=== PATIENT | male | born 1940 | race Caucasian/White ===

== ENCOUNTER 2019-11-04 12:51 | Emergency (ER) | payer MEDICARE, OTHER, SELFPAY ==
[2019-07-10 14:50] VITALS: BMI 28.6
[2019-11-04] VITALS (7 sets, daily range): BP systolic 153–207; BP diastolic 79–96; PULSE 61–75; RESP 18–24; TEMP 36.6; O2SAT 94–100; BMI 28.5
--- NOTE | 2019-11-04 12:51 | CT_ITS ---
STUDY: CT BRAIN WITHOUT CONTRAST REASON FOR EXAM: Male, 79 years old. Slurred speech, diaphoretic, hx dementia, hypertension, diabetes. RADIATION DOSAGE (If Supplied By Facility): CTDIvol = ( 44.99 ) mGy, DLP = ( 745.49 ) mGycm TECHNIQUE: Transaxial CT imaging of the brain was performed without administration of intravenous contrast material. Individualized dose optimization techniques were used for this CT. COMPARISON: No relevant priors. FINDINGS: Normal soft tissue structures. Normal calvarium. There is mild cerebral atrophy with widening of the extra-axial spaces and ventricular dilatation. There are areas of decreased attenuation within the white matter tracts of the supratentorial brain, consistent with microvascular disease changes. Small old lacunar infarct in the right thalamus and right basal ganglia. Normal brainstem. Normal cerebellum. There is no intracranial hemorrhage. There are no findings of an acute ischemic infarction. Normal visualized paranasal sinuses. CT/Brain/Head without Contrast IMPRESSION: Chronic involutional changes of the brain. N.B. : The above information has been verbally conveyed by Cesario George to Armando Hernandez on 11/04/2019 13:04:58 (ET). Electronically Signed: Cesario George, at 13:07 EDT , Service support ,
--- NOTE | 2019-11-04 12:51 | EKG12_ITS ---
Test Reason : STROKE Blood Pressure : / mmHG Vent. Rate : 062 BPM Atrial Rate : 062 BPM P-R Int : 000 ms QRS Dur : 144 ms QT Int : 466 ms P-R-T Axes : 000 -59 -40 degrees QTc Int : 472 ms Atrial fibrillation Right bundle branch block Left anterior fascicular block Bifascicular block Abnormal ECG Confirmed by KATRINA BAILEY, JASMIN ([id number]), editorial specialist BAILEY ESCAMILLA ([id number]) on 11/09/2019 12:51:11 PM Referred By: ROGER Confirmed By:JASMIN HERNDON MD
--- NOTE | 2019-11-04 12:54 | ED.VIS.GEN ---
History of Present Illness Chief Complaint: Neuro S/Sx Informant: Patient Limited by: Dementia Onset: Today Context: Sudden Onset Timing: Continuous Current Severity: Mild Maximum Severity: Moderate Narrative: Patient is an 79-year-old male with medical history significant for diabetes, hypertension, and dementia the presents to the emergency department with slurred speech. History is gathered from the squad. Apparently, his noticed that he was having difficulty with his words. She called [facility]. Stroke team was activated prehospital he. On arrival, the patient denies any symptoms. He has decent fluency of speech. He was sent immediately for CT scan. Prior similar symptoms: No Recent Illness/Hospitalization: No Past Medical History - Allergies and Home Meds Allergies/Adverse Reactions: Allergies Penicillins Allergy (Verified 11/04/19 13:06) Anaphylaxis Primary Care Physician: Todd Cisse MD [Primary Care Provider] - Prior records reviewed: Yes Past Medical History: - - Hypertension, hyperlipidemia, diabetes Surgical History: noncontributory, - - Coronary artery stent placement, renal artery stent placement Smoking Status: Never smoker - Family History Maternal Family History: Family History (Last Reviewed 03/05/19 @ 07:[address] Earl Gonzales MD) Mother Diabetes Heart disease Hypertension Father Diabetes Heart disease Hypertension Family History: Reports: No pertinent history Paternal Family History: Family History (Last Reviewed 03/05/19 @ 07:[address] Earl Gonzales MD) Mother Diabetes Heart disease Hypertension Father Diabetes Heart disease Hypertension Family History: Reports: Diabetes, Heart Disease Review of Systems General: Denies: Chills, Fever, Sweats Eyes: Denies: Visual changes - bilaterally, Diplopia ENT: Denies: Rhinorrhea, Sore throat Cardiovascular: Denies: Chest pain, Palpitations Respiratory: Denies: Dyspnea, Cough, Dyspnea on exertion Gastrointestinal: Denies: Abdominal pain, Nausea, Vomiting, Diarrhea, Melena, Hematochezia Genitourinary: Denies: Dysuria, Hematuria, Frequency Musculoskeletal: Denies: Back pain, Extremity Pain Skin: Denies: Rash, Wounds Neurological: Denies: Headache, Weakness, Numbness Physical Exam Inital Vital Signs reviewed: Yes General: Well nourished, Well developed, No Acute Distress Head: Normocephalic, Atraumatic Eyes: Perrl, EOMI ENT: Moist mucous membranes, No rhinorrhea Neck: Supple, Nontender Cardiovascular: Regular rate, Regular rhythm, No murmurs Respiratory: No distress, CTA bilaterally, Chest nontender Abdomen: Soft, Nontender, Nondistended, Normal bowel sounds Back: Nontender, Normal Inspection Extremities: Nontender, No edema Skin: Normal color, No rash Neurological: Alert, Oriented x3, Cranial nerves II-XII grossly intact, Normal Strength, Normal Sensation Psychological: Normal affect, Normal Mood Diagnostic/Tx/Re-eval - Medical Decision Making On arrival, the patient has an NIH of 0. Stroke team had already been activated prehospital he. Bedside sugar was 48. The patient was given an amp of D50. He was seen and evaluated by neurology. He is obviously not a TPA candidate as he has an NIH of 0. Metabolic work-up was unremarkable aside from hypoglycemia. The patient states he did not eat breakfast or lunch today. He was working in his yard. My suspicion for TIA is very low. I do suspect this is likely symptomatic hypoglycemia. With D50, he is feeling improved. The patient was given a diet. He will be observed. The plan will be for repeat blood sugar. As long as his neuro status remained stable I do feel that he can safely be discharged and he and son are comfortable with this plan. Impression 1. Symptomatic hypoglycemia ED Disposition - Plan for ED Patient: Instructions: ED HYPOGLYCEMIA Insulin Rxn Referrals: Todd Cisse MD [Primary Care Provider] -
[2019-11-04 13:05] LABS: Bedside Glucose 48 mg/dL (70-110)
--- NOTE | 2019-11-04 13:08 | NURSING ---
1234 STROKE ALERT CALLED PRIOR TO ARRIVAL.
--- NOTE | 2019-11-04 13:09 | NURSING ---
FACESHEET FAXED TO [facility]
[2019-11-04] MEDS: Dextrose 50%-Water 25 GM/50 ML DISP.SYRIN IV (13:12)
--- NOTE | 2019-11-04 13:23 | RAD_ITS ---
STUDY: X-RAY CHEST REASON FOR EXAM: Male, 79 years old. SLURRED SPEECH, DIAPHORETIC, STUMBLING TECHNIQUE: Single AP portable view of the chest. COMPARISON: Comparison is made with prior study dated 10/05/2016. FINDINGS: EKG electrodes are seen. The lungs are clear and expanded. There is no demonstrated pleural abnormality. Normal size heart. Normal mediastinum and patricio. Normal visualized pulmonary arteries. There is atherosclerotic calcification of the aortic arch with tortuosity. There are diffuse degenerative changes of the visualized thoracic spine. Normal visualized ribs, clavicles, and shoulders. There is no demonstrated abnormality of the visualized soft tissue structures of the upper abdomen. RAD/Chest 1 View IMPRESSION: No acute abnormality is present. Electronically Signed: Cesario George, at 14:05 EDT , Service support ,
[2019-11-04 13:24] LABS: Absolute Lymphocyte Count 1.67 X10^3/uL (0.83-4.51); Basophil# 0.07 X10^3/uL; Basophil% 0.9 % (0-1); Eosinophil# 0.18 X10^3/uL; Eosinophils% 2.3 % (0-5); Hematocrit 32.4 % (40-54); Hemoglobin 10.7 g/dL (13.0-16.5); Lymphocyte # 1.67 X10^3/ul (4.0); Lymphocyte % 21.8 % (19-41); Mean Corpuscular Hgb 28.8 pg (27.0-32.0); Mean Corpuscular Volume 87.1 fL (80-94); Mean Platelet Vol. 11.6 fl (6.2-12.0); Monocyte# 0.75 X10^3/uL; Monocyte% 9.8 % (0-10); NRBC Flagged by Analyzer 0 % (0-5); Neutrophil # 4.97 X10^3/uL (2.7-7.7); Neutrophil % 64.9 % (47-70); Platelet Count 192 K/mm3 (150-450); RBC Distribution Width CV 14.8 % (11.6-14.6); RBC Distribution Width SD 47.6 fl (35.1-43.9); Red Blood Count 3.72 M/mm3 (4.6-6.2); White Blood Count 7.7 K/mm3 (4.4-11.0)
[2019-11-04 13:35] LABS: Prothrombin Time (Protime)PT. 12.9 SECONDS (11.7-14.9)
[2019-11-04 13:36] LABS: Partial Thromboplast Time 21.2 Seconds (24.1-36.2)
--- NOTE | 2019-11-04 13:40 | CM.ED ---
SOCIAL WORK Informant: NurseCarrie Reason for Consult: [place] Alert/Resources Responded to Stroke Alert, son present. This worker met with son. Son states patient with history of dementia and lives home with . Son requesting resources for patient and . 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 Son states patient is not homebound and would likely not qualify for home health. Support and education provided. Son states will review with mother/patient's and sister/patient's daughter. No further questions at this time. This worker to remain available for needs. Justyna Blair, BELTING CUTTER, FILTERING MACHINE TENDER
[2019-11-04 13:43] LABS: Anion Gap 6 (5-15); BUN 27 mg/dL (7-18); BUN/Creat Ratio 19.4 RATIO (10-20); Calcium,Total 7.8 mg/dL (8.5-10.1); Chloride 110 mmol/L (98-107); Creatinine, Serum 1.39 mg/dL (0.70-1.30); EST Glomerular Filtration Rate 52 mL/min (>60); Est Glom Filt Rate - Afr Amer 63 mL/min (>60); Estimated Creatinine Clearance 43.04 ml/min; Glucose 204 mg/dL (74-106); Potassium 3.8 mmol/L (3.5-5.1); Sodium Level 141 mmol/L (136-145)
--- NOTE | 2019-11-04 14:11 | ED.RN ---
LUNCH TRAY ORDERED FOR PT. PT NO LONGER DIAPHORETIC. PT STILL CONFUSED PER BASELINE DUE TO DEMENTIA. WILL CONTINUE TO MONITOR BLOOD GLUCOSE FOR CHANGES. PT REQUESTS TO GO HOME, AND WAS ADVISED THAT HE NEEDED TO EAT A MEAL PRIOR TO DISCHARGE TO ENSURE PROPER GLUCOSE LEVELS. PT VERBALIZED UNDERSTANDING, DENIES FURTHER NEEDS AT THIS TIME. SON PRESENT AT BEDSIDE.
[2019-11-04] MEDS: Ondansetron 4 MG/2 ML Vial IV (14:31)
[2019-11-04] MEDS: hydrALAZINE 20 MG/ML Vial 10 MG IV (14:41)
[2019-11-04 15:20] LABS: Bedside Glucose 204 mg/dL (70-110)
[2019-11-04 15:20] LABS: Bedside Glucose 107 mg/dL (70-110)
[2019-11-04 15:20] LABS: Bedside Glucose 122 mg/dL (70-110)
== END 2019-11-04 15:45 | disposition home or self-care (01) ==
LOC: ED 13:03
PROVIDERS: Emergency Provider Emergency Medicine; PCP Family Medicine
DX: E11.649 Type 2 diabetes mellitus with hypoglycemia without coma (principal); I10 Essential (primary) hypertension; E78.5 Hyperlipidemia, unspecified; F03.90 Unspecified dementia, unspecified severity, without behavioral disturbance, psychotic disturbance, mood disturbance, and anxiety; Z95.5 Presence of coronary angioplasty implant and graft; Z79.4 Long term (current) use of insulin; Z79.82 Long term (current) use of aspirin; Z79.899 Other long term (current) drug therapy
CPT/HCPCS: 70450; 71045; 80048; 82962; 84484; 85025; 85610; 85730; 93005; 96374; 96375; 99285; A4216; J2405

== ENCOUNTER 2019-12-18 15:22 | Emergency (ER) | payer MEDICARE, OTHER, SELFPAY ==
[2019-12-01 14:20] VITALS: BMI 28.5
[2019-12-18 15:23] VITALS: BP 141/52; PULSE 99; RESP 18; TEMP 36.4; O2SAT 99; BMI 29.2
--- NOTE | 2019-12-18 15:30 | CT_ITS ---
STUDY: CT ABDOMEN AND PELVIS WITHOUT CONTRAST REASON FOR EXAM: Male, 79 years old. SBO, DIARRHEA RADIATION DOSAGE (If Supplied By Facility): CTDIvol = ( 15.56 ) mGy, DLP = ( 870.75 ) mGycm TECHNIQUE: Transaxial images were obtained from the dome of the diaphragm to the symphysis pubis without oral contrast, and without intravenous contrast. Sagittal and coronal images were reconstructed. Individualized dose optimization techniques were used for this CT. COMPARISON: 10/05/2016 FINDINGS: Minor atelectasis within the dependent portion of the lungs.. The heart size is normal. There is mild coronary artery calcification Normal liver. Normal gallbladder and extrahepatic biliary system. Tiny granulomatous calcifications within normal size spleen.. Diffusely atrophic pancreas.. Normal bilateral adrenal glands. Tiny nonobstructing right renal calculus. No evidence for obstruction or mass.. The left kidney is atrophic and scarred. There are multiple nonobstructing calculi. No evidence for hydronephrosis or mass. Normal visualized stomach. Normal small intestine. Mild diverticular changes of the sigmoid and descending colon without evidence for acute diverticulitis The appendix is visualized and appears normal. Atherosclerotic changes of the aorta without evidence for aneurysm Normal inferior vena cava. Normal retroperitoneum. Normal urinary bladder. Postop change status post TURP Moderate size bilateral fat-containing inguinal hernias.. Lumbar spine demonstrates moderate spondylosis. CT/Abdomen/Pelvis without Cont IMPRESSION: Diverticular disease of the descending and sigmoid colon without evidence for acute diverticulitis. No evidence for small bowel obstruction or acute appendicitis. Other findings as above Electronically Signed: Jarrett Rivera MD at 17:54 EDT , Service support ,
--- NOTE | 2019-12-18 15:30 | EKG12_ITS ---
Test Reason : N/V Blood Pressure : / mmHG Vent. Rate : 057 BPM Atrial Rate : 059 BPM P-R Int : 000 ms QRS Dur : 144 ms QT Int : 478 ms P-R-T Axes : 000 -57 -39 degrees QTc Int : 465 ms Atrial fibrillation Right bundle branch block Left anterior fascicular block Bifascicular block Abnormal ECG Confirmed by SIOBHAN BAILEY, DIDI ([id number]), material expeditor BAILEY ESCAMILLA ([id number]) on 12/21/2019 11:29:33 AM Referred By: JORGE Confirmed By:DIDI MCCANN MD
--- NOTE | 2019-12-18 15:31 | CT_ITS ---
STUDY: CT BRAIN WITHOUT CONTRAST REASON FOR EXAM: Male, 79 years old. SBO, FALL ON COUMADIN, VOMITING, PALE/DIAPHORETIC RADIATION DOSAGE (If Supplied By Facility): CTDIvol = ( 44.99 ) mGy, DLP = ( 779.24 ) mGycm TECHNIQUE: Transaxial CT imaging of the brain was performed without administration of intravenous contrast material. Individualized dose optimization techniques were used for this CT. COMPARISON: 11/04/2019 FINDINGS: Normal soft tissue structures. Normal calvarium. Calcification of cavernous carotids. Moderate atrophy and periventricular white matter ischemic changes.. Normal basal ganglia. Tiny old lacunar infarct in the right thalamus.. Normal brainstem. Normal cerebellum. There is no intracranial hemorrhage. There are no findings of an acute ischemic infarction. Mild mucosal thickening of the left maxillary and ethmoid sinuses. No significant change since prior exam CT/Brain/Head without Contrast IMPRESSION: Atrophy and periventricular white matter ischemic changes.. Old right lacunar infarct. No evidence for acute intracranial bleed Electronically Signed: Jarrett Rivera MD at 17:39 EDT , Service support ,
--- NOTE | 2019-12-18 15:31 | CT_ITS ---
STUDY: CT CERVICAL SPINE WITHOUT CONTRAST REASON FOR EXAM: Male, 79 years old. SBO, FALL ON COUMADIN, VOMITING, PALE/DIAPHORETIC RADIATION DOSAGE (If Supplied By Facility): CTDIvol = ( 24.86 ) mGy, DLP = ( 532.39 ) mGycm TECHNIQUE: High resolution transaxial imaging was performed without contrast material. Sagittal and coronal images were reconstructed. Individualized dose optimization techniques were used for this CT. COMPARISON: None FINDINGS: Normal craniovertebral junction. Normal anterior atlantoaxial articulation. Normal odontoid process. Decreased cervical lordosis. Normal vertebral bodies and posterior osseous elements. C2-3: Normal endplates. Normal disc height and morphology. Normal central canal and intervertebral neuroforamina. C3-4: Normal endplates. Normal disc height and morphology. Normal central canal and severe left neuroforaminal stenosis secondary to bony hypertrophy C4-5: Narrowed disc space and endplate spurring. Normal central canal. Severe bilateral neuroforaminal stenosis secondary to bony hypertrophy. C5-6: Narrowed disc space and endplate spurring. Mild narrowing of the central canal. Severe bilateral neuroforaminal stenosis secondary to bony hypertrophy.. C6-7: Narrowed disc space and endplate spurring. Mild narrowing the central canal. Severe bilateral neuroforaminal stenosis secondary to bony hypertrophy.. C7-T1: Normal endplates. Normal disc height and morphology. Normal central canal and intervertebral neuroforamina. Normal visualized soft tissue structures. CT/Spine Cervical without Contras IMPRESSION: No evidence for acute fracture or subluxation.. Advanced spondylosis and multilevel spinal stenosis secondary to bony hypertrophy. Electronically Signed: Jarrett Rivera MD at 17:41 EDT , Service support ,
[2019-12-18] MEDS: 0.9% Normal Saline 1,000 ML 1000 ML IV (15:46)
[2019-12-18] MEDS: Ondansetron 4 MG/2 ML Vial IV (15:47)
--- NOTE | 2019-12-18 15:53 | ED.DCSUM_ITS ---
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 He was doing well and they were arrived back home when he sustained a fall striking the back of his head. He began to vomit EMS notes he was profusely diaphoretic and bradycardic. Patient reportedly has a history of dementia. EMS states that he is on Coumadin for unknown reason. Family is unaware if he is on Coumadin but do not believe so. Unknown last tetanus. Patient denies any pain. Patient and his do not know if he has a history of A. 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 Denies side effects. Last chol in range per PCP, who manages. (2) Hypertension, essential Status: Chronic Comment: Bp sl elevated today. reports normal in [facility] office a week ago. (3) Syncope and collapse Status: Resolved (4) Urinary retention Status: Resolved (5) Diabetes Status: Chronic (6) Mixed hyperlipidemia Status: Chronic Past Medical History - Allergies and Home Meds Allergies/Adverse Reactions: Allergies Penicillins Allergy (Verified 12/18/19 15:43) Anaphylaxis Primary Care Physician: Todd Cisse MD [Primary Care Provider] - Prior records reviewed: Yes Surgical History: noncontributory, - - Coronary artery stent placement, renal artery stent placement Lives: Spouse/ Significant Other Smoking Status: Never smoker Drugs: None - Family History Maternal Family History: Family History (Last Reviewed 12/01/19 @ 14:13 by Florence Hebert) Mother Diabetes Heart disease Hypertension Father Diabetes Heart disease Hypertension Family History: Reports: No pertinent history Paternal Family History: Family History (Last Reviewed 12/01/19 @ 14:13 by Florence Hebert) Mother Diabetes Heart disease Hypertension Father Diabetes Heart disease Hypertension Family History: Reports: Diabetes, Heart Disease Review of Systems General: Denies: Chills, Fever, Sweats Eyes: Denies: Visual changes - bilaterally, Diplopia ENT: Denies: Rhinorrhea, Sore throat Cardiovascular: Denies: Chest pain, Palpitations Respiratory: Denies: Dyspnea, Cough, Dyspnea on exertion Gastrointestinal: Reports: Nausea, Vomiting. Denies: Abdominal pain, Diarrhea, Melena, Hematochezia Genitourinary: Denies: Dysuria, Hematuria, Frequency Musculoskeletal: Denies: Back pain, Extremity Pain Skin: Reports: Wounds - Occiput and right arm. Denies: Rash Neurological: Denies: Headache, Weakness, Numbness Physical Exam Vital Signs/Narrative: Vital Signs Temp Pulse Resp BP Pulse Ox 12/18/19 15:23 97.6 F L 99 18 141/52 H 99 Inital Vital Signs reviewed: Yes General: Well nourished, Well developed, No Acute Distress Head: Normocephalic, Trauma - Abrasions to the occiput of the scalp Eyes: Perrl, EOMI ENT: Moist mucous membranes, No rhinorrhea Neck: Supple, Nontender Cardiovascular: Regular rate, Regular rhythm, No murmurs Respiratory: No distress, CTA bilaterally, Chest nontender Abdomen: Soft, Nontender, Nondistended, Normal bowel sounds Back: Nontender, Normal Inspection Extremities: Nontender, No edema Skin: Normal color, No rash, Trauma - Quarter size skin tear right forearm Neurological: Alert, Cranial nerves II-XII grossly intact, Normal Strength, Normal Sensation Psychological: - - Blunted affect Diagnostic/Tx/Re-eval Clinical Impression(s) from Imaging Studies Abdomen/Pelvis CT 12/18/19 15:30 IMPRESSION: Diverticular disease of the descending and sigmoid colon without evidence for acute diverticulitis. No evidence for small bowel obstruction or acute appendicitis. Other findings as above Electronically Signed: Jarrett Rivera MD at 17:54 EDT , Service support , Brain CT 12/18/19 15:31 IMPRESSION: Atrophy and periventricular white matter ischemic changes.. Old right lacunar infarct. No evidence for acute intracranial bleed Electronically Signed: Jarrett Rivera MD at 17:39 EDT , Service support , Cervical Spine CT 12/18/19 15:31 IMPRESSION: No evidence for acute fracture or subluxation.. Advanced spondylosis and multilevel spinal stenosis secondary to bony hypertrophy. Electronically Signed: Jarrett Rivera MD at 17:41 EDT , Service support , Chest X-Ray 12/18/19 16:10 IMPRESSION: Diminished inspiratory effort. No acute disease. Electronically Signed: Jarrett Rivera MD at 16:41 EDT , Service support , Laboratory Last Values WBC 9.0 K/mm3 (4.4-11.0) 12/18/19 15:25 RBC 4.01 M/mm3 (4.6-6.2) L 12/18/19 15:25 Hgb 11.1 g/dL (13.0-16.5) L 12/18/19 15:25 Hct 33.9 % (40-54) L 12/18/19 15:25 MCV 84.5 fL (80-94) 12/18/19 15:25 MCH 27.7 pg (27.0-32.0) 12/18/19 15:25 MCHC 32.7 g/dL (32-36) 12/18/19 15:25 RDW Std Deviation 45.3 fl (35.1-43.9) H 12/18/19 15:25 RDW Coeff of Courtney 14.6 % (11.6-14.6) 12/18/19 15:25 Plt Count 239 K/mm3 (150-450) 12/18/19 15:25 MPV 10.8 fl (6.2-12.0) 12/18/19 15:25 Immature Gran % (Auto) 0.300 % (0.0-0.9) 12/18/19 15:25 Neut % (Auto) 66.8 % (47-70) 12/18/19 15:25 Lymph % (Auto) 21.1 % (19-41) 12/18/19 15:25 [place] % (Auto) 8.0 % (0-10) 12/18/19 15:25 Eos % (Auto) 3.1 % (0-5) 12/18/19 15:25 Baso % (Auto) 0.7 % (0-1) 12/18/19 15:25 Absolute Neuts (auto) 6.0 X10^3/uL (2.0-7.7) 12/18/19 15:25 Absolute Lymphs (auto) 1.89 X10^3/uL (0.83-4.51) 12/18/19 15:25 Nucleated RBC % 0 % (0-5) 12/18/19 15:25 PT 12.7 SECONDS (11.7-14.9) 12/18/19 16:00 INR 1.0 12/18/19 16:00 APTT 24.3 Seconds (24.1-36.2) 12/18/19 16:00 Sodium 139 mmol/L (136-145) 12/18/19 15:25 Potassium 5.1 mmol/L (3.5-5.1) 12/18/19 15:25 Chloride 109 mmol/L (98-107) H 12/18/19 15:25 Carbon Dioxide 21.0 mmol/L (21.0-32.0) 12/18/19 15:25 Anion Gap 9 (5-15) 12/18/19 15:25 BUN 37 mg/dL (7-18) H 12/18/19 15:25 Creatinine 1.85 mg/dL (0.70-1.30) H 12/18/19 15:25 Estim Creat Clear Calc 30.30 ml/min 12/18/19 15:25 Est GFR (MDRD) Af Amer 45 mL/min (>60) L 12/18/19 15:25 Est GFR (MDRD) Non-Af 37 mL/min (>60) L 12/18/19 15:25 BUN/Creatinine Ratio 20.0 RATIO (-20) 12/18/19 15:25 Glucose 142 mg/dL (74-106) H 12/18/19 15:25 Calcium 8.4 mg/dL (8.5-10.1) L 12/18/19 15:25 Total Bilirubin 0.40 mg/dL (0.20-1.00) 12/18/19 15:25 AST 31 U/L (15-37) 12/18/19 15:25 ALT 30 U/L (16-61) 12/18/19 15:25 Alkaline Phosphatase 40 U/L (45-117) L 12/18/19 15:25 Troponin I 0.031 ng/mL (<0.045) 12/18/19 15:25 Total Protein 6.9 g/dL (6.4-8.2) 12/18/19 15:25 Albumin 2.6 g/dL (3.2-5.0) L 12/18/19 15:25 Globulin 4.3 g/dL (2.2-4.2) H 12/18/19 15:25 Albumin/Globulin Ratio 0.6 RATIO (0.9-2.4) L 12/18/19 15:25 Lipase 117 U/L (73-393) 12/18/19 15:25 - Medical Decision Making Patient received Zofran and fluids. Vomiting has subsided. He did have a bout of diarrhea. CT the brain and neck are negative for trauma. CT the pelvis shows nothing acute. Patient had no events on the monitor. He got up and ambulated around the department without any difficulty and without the need of much support. At this point I think the patient most likely hit his head probably has a mild concussion but has dementia certainly might limit degree of confusion but he is talking appropriately he ambulates appropriately. I do not see an obvious reason to admit the patient. He will be discharged home with supportive care I can write for some Zofran return if worsening or concerns notes understanding ED Disposition - Plan for ED Patient: Disposition: Home or Assisted Living Diagnosis: Concussion, Vomiting, Atrial fibrillation, Dementia Instructions: ED Head Injury Adult Prescriptions: Ondansetron [Zofran Odt] 4 mg PO Q6H PRN PRN #20 tab PRN Reason: Nausea Prescription Printed Referrals: Todd Cisse MD [Primary Care Provider] - 3-5 Days
[2019-12-18 15:56] LABS: Absolute Lymphocyte Count 1.89 X10^3/uL (0.83-4.51); Basophil# 0.06 X10^3/uL; Basophil% 0.7 % (0-1); Eosinophil# 0.28 X10^3/uL; Eosinophils% 3.1 % (0-5); Hematocrit 33.9 % (40-54); Hemoglobin 11.1 g/dL (13.0-16.5); Lymphocyte # 1.89 X10^3/ul (4.0); Lymphocyte % 21.1 % (19-41); Mean Corp Hgb Conc 32.7 g/dL (32-36); Mean Corpuscular Hgb 27.7 pg (27.0-32.0); Mean Corpuscular Volume 84.5 fL (80-94); Mean Platelet Vol. 10.8 fl (6.2-12.0); Monocyte# 0.72 X10^3/uL; NRBC Flagged by Analyzer 0 % (0-5); Neutrophil # 5.99 X10^3/uL (2.7-7.7); Neutrophil % 66.8 % (47-70); Platelet Count 239 K/mm3 (150-450); RBC Distribution Width CV 14.6 % (11.6-14.6); RBC Distribution Width SD 45.3 fl (35.1-43.9); Red Blood Count 4.01 M/mm3 (4.6-6.2)
--- NOTE | 2019-12-18 16:10 | RAD_ITS ---
STUDY: X-RAY CHEST REASON FOR EXAM: Male, 79 years old. fell. vomiting on arrival, pale, diaphoretic. TECHNIQUE: AP portable COMPARISON: 11/04/2019. FINDINGS: Less than optimal inspiratory effort is seen however the lungs are clear.. There is no demonstrated pleural abnormality. Normal size heart. Normal mediastinum and patricio. Normal visualized pulmonary arteries. Normal visualized aortic arch and descending thoracic aorta. Dorsal spine and shoulders demonstrate degenerative change. Normal visualized ribs, and clavicles.. Postsurgical changes in the soft tissues of the neck bilaterally There is no demonstrated abnormality of the visualized soft tissue structures of the upper abdomen. RAD/Chest 1 View (Portable) IMPRESSION: Diminished inspiratory effort. No acute disease. Electronically Signed: Jarrett Rivera MD at 16:41 EDT , Service support ,
[2019-12-18 16:18] LABS: Prothrombin Time (Protime)PT. 12.7 SECONDS (11.7-14.9)
[2019-12-18 16:19] LABS: Partial Thromboplast Time 24.3 Seconds (24.1-36.2)
[2019-12-18 16:39] LABS: ALB/GLOB Ratio 0.6 RATIO (0.9-2.4); AST(SGOT) 31 U/L (15-37); Alanine Aminotransfer ALT/SGPT 30 U/L (16-61); Albumin, Serum 2.6 g/dL (3.2-5.0); Alkaline Phosphatase 40 U/L (45-117); Anion Gap 9 (5-15); BUN 37 mg/dL (7-18); Calcium,Total 8.4 mg/dL (8.5-10.1); Chloride 109 mmol/L (98-107); Creatinine, Serum 1.85 mg/dL (0.70-1.30); EST Glomerular Filtration Rate 37 mL/min (>60); Est Glom Filt Rate - Afr Amer 45 mL/min (>60); Globulin 4.3 g/dL (2.2-4.2); Glucose 142 mg/dL (74-106); Lipase 117 U/L (73-393); Potassium 5.1 mmol/L (3.5-5.1); Protein, Total 6.9 g/dL (6.4-8.2); Sodium Level 139 mmol/L (136-145)
[2019-12-18] MEDS: Diphth,Pertuss(Acell),Tet Vac 0.5 ML Vial IM (17:19)
[2019-12-18 17:25] VITALS: BP 145/76; PULSE 51; RESP 18; O2SAT 96
== END 2019-12-18 19:17 | disposition home or self-care (01) ==
PROVIDERS: Emergency Provider Emergency Medicine; PCP Family Medicine
DX: S06.0X0A Concussion without loss of consciousness, initial encounter (principal); S00.01XA Abrasion of scalp, initial encounter; I48.91 Unspecified atrial fibrillation; R19.7 Diarrhea, unspecified; W19.XXXA Unspecified fall, initial encounter; Y93.9 Activity, unspecified; Y92.9 Unspecified place or not applicable; I10 Essential (primary) hypertension; E78.2 Mixed hyperlipidemia; E10.69 Type 1 diabetes mellitus with other specified complication; F03.90 Unspecified dementia, unspecified severity, without behavioral disturbance, psychotic disturbance, mood disturbance, and anxiety; Z95.5 Presence of coronary angioplasty implant and graft; Z79.4 Long term (current) use of insulin; Z79.82 Long term (current) use of aspirin; Z79.899 Other long term (current) drug therapy
CPT/HCPCS: 70450; 71045; 72125; 74176; 80053; 83690; 84484; 85025; 85610; 85730; 90471; 90715; 93005; 96361; 96374; 99284; J7030; A4216; J2405

== ENCOUNTER 2022-01-28 15:48 | Inpatient (IN) | payer MEDICARE, OTHER, SELFPAY ==
[2022-01-28 15:49] VITALS: BP 110/86; PULSE 85; RESP 18; TEMP 36.1; O2SAT 97; BMI 27.4
--- NOTE | 2022-01-28 16:26 | CT_ITS ---
STUDY: CT BRAIN WITHOUT CONTRAST REASON FOR EXAM: Male, 81 years old. Fall. RADIATION DOSAGE (If Supplied By Facility): CTDIvol = ( 44.99 ) mGy, DLP = ( 779.24 ) mGycm TECHNIQUE: Transaxial CT imaging of the brain was performed without administration of intravenous contrast material. Individualized dose optimization techniques were used for this CT. COMPARISON: December 18, 2019. FINDINGS: Normal soft tissue structures. Normal calvarium. There is mild cerebral atrophy with widening of the extra-axial spaces and ventricular dilatation. There are areas of decreased attenuation within the white matter tracts of the supratentorial brain, consistent with microvascular disease changes. Normal basal ganglia and thalami. Normal brainstem. Normal cerebellum. There is no intracranial hemorrhage. There are no findings of an acute ischemic infarction. Normal visualized paranasal sinuses. CT/Brain/Head without Contrast IMPRESSION: No acute intracranial or calvarial abnormality. There is no major interval change. Electronically Signed: Wenceslao Coulter DO at 17:49 EST ,
--- NOTE | 2022-01-28 16:27 | EKG12_ITS ---
Test Reason : fall Blood Pressure : / mmHG Vent. Rate : 088 BPM Atrial Rate : 088 BPM P-R Int : 278 ms QRS Dur : 138 ms QT Int : 400 ms P-R-T Axes : 071 -70 -51 degrees QTc Int : 484 ms Sinus rhythm with 1st degree A-V block Right bundle branch block Left anterior fascicular block Bifascicular block Abnormal ECG Confirmed by KATRINA BAILEY, JASMIN ([id number]), video effects editor BAILEY ESCAMILLA ([id number]) on 01/29/2022 10:07:56 AM Referred By: Khoi Confirmed By:JASMIN HERNDON MD
--- NOTE | 2022-01-28 16:28 | CT_ITS ---
STUDY: CT FACIAL BONES WITHOUT CONTRAST REASON FOR EXAM: Male, 81 years old. Fall. RADIATION DOSAGE (If Supplied By Facility): CTDIvol = ( 29.38 ) mGy, DLP = ( 488.69 ) mGycm TECHNIQUE: The patient was scanned in a multi detector CT scanner. Sagittal and coronal images were reconstructed. Individualized dose optimization techniques were used for this CT. COMPARISON: CT of the head, January 28, 2022. FINDINGS: Soft tissue prominence over the bridge of nose. The soft tissues appear otherwise unremarkable. Normal orbital morales and orbital contents. Question of minimal nondisplaced nasal bone fractures. Normal anterior nasal spine. Normal facial bones. There is no demonstrated fracture. There is mucoperiosteal reaction in the frontal sinuses and anterior ethmoid air cells. CT/Sinus/Facial Bone IMPRESSION: 1. Question small nondisplaced nasal bone fractures with overlying soft tissue swelling. 2. Frontal and anterior ethmoid sinusitis. Electronically Signed: Wenceslao Coulter DO at 17:52 EST ,
--- NOTE | 2022-01-28 16:28 | CT_ITS ---
STUDY: CT CERVICAL SPINE WITHOUT CONTRAST REASON FOR EXAM: Male, 81 years old. Fall. RADIATION DOSAGE (If Supplied By Facility): CTDIvol = ( 22.29 ) mGy, DLP = ( 393.78 ) mGycm TECHNIQUE: High resolution transaxial imaging was performed without contrast material. Sagittal and coronal images were reconstructed. Individualized dose optimization techniques were used for this CT. COMPARISON: CT of the cervical spine, December 18, 2019. FINDINGS: Normal craniovertebral junction. There are degenerative changes of the anterior atlantoaxial articulation. Normal odontoid process. There is straightening of the normal cervical lordosis. Normal vertebral bodies and posterior osseous elements. C2-3: Normal endplates. Mild loss of disc height without bulging annulus. Facet and uncovertebral joint degenerative change.. Normal central canal and intervertebral neuroforamina. C3-4: Normal endplates. Mild bulging annulus. Facet and uncovertebral joint degenerative change. Normal central canal. Narrowing of the lateral intervertebral neuroforamen. C4-5: Endplate spondylosis. Marked loss of disc height with bulging annulus. Facet and uncovertebral joint degenerative change. No stenosis of the central canal. Narrowing of the bilateral intervertebral neuroforamina. C5-6: Endplate spondylosis. Loss of disc height with bulging annulus. Facet and uncovertebral joint degenerative change. Mild stenosis of the central canal and narrowing the bilateral intervertebral neuroforamina. C6-7: Mild endplate spondylosis also displayed. Facet joint degenerative change. Mild stenosis of the central canal. Normal intervertebral neuroforamina. C7-T1: Normal endplates. Normal disc height and morphology. Normal central canal and intervertebral neuroforamina. Carotid artery calcifications. CT/Spine Cervical without Contras IMPRESSION: Degenerative changes of the cervical spine. There is no acute fracture or subluxation. There is no major interval change. Note: MRI is more sensitive than CT in detecting cord injury, ligamentous injury and epidural hematoma. If there is continued clinical concern for any of these entities, MRI should be considered. Electronically Signed: Wenceslao Coulter DO at 17:48 EST Reading Location ID and State: [facility] / [place] Tel [phone], Service support ,
--- NOTE | 2022-01-28 16:31 | EX.ED.DYSGE1 ---
HPI <HAIM Anderson - Last Filed: 01/28/22 18:38> History of Present Illness Chief Complaint: Fall Narrative Narrative: Patient is a 81-year-old male with history of dementia, diabetes, hypertension, history of falls presents to the emergency department after mechanical fall and then the inability to walk. Patient had a mechanical fall today which he states he lost his balance. He struck his face on the ground. Patient is currently not on any blood thinning medicine other than aspirin. Patient was able to get himself up and walk to the bedroom. Patient has an abrasion to his right elbow, abrasion to the nose. He is acting appropriate per the daughter. What made the daughter nervous was that when she tried to get him up, he was unable to walk and balance himself. Since being here, the daughter states that he is acting much better and acting more himself. Patient denies any pain at this time. [facility] <HAIM Anderson - Last Filed: 01/28/22 18:38> [facility] Medical History (Updated 01/28/22 @ 18:38 by HAIM Anderson) Constipation Dementia Diabetes type 2, controlled Headache Hearing problem Heart disease Hemorrhoids High cholesterol HTN (hypertension) Kidney disease Rectal bleeding Home Medications donepezil 10 mg tablet 10 mg PO DAILY MEMORY 01/01/18 [History Last Taken 12/18/19] magnesium oxide 400 mg PO DAILY SUPPLEMENT 03/03/19 [History Last Taken 12/18/19] sertraline 50 mg tablet 50 mg PO DAILY DEPRESSION 03/03/19 [History Last Taken 12/18/19] aspirin 81 mg tablet,delayed release (Adult Low Dose Aspirin) 81 mg PO DAILY 07/10/19 [History Last Taken 12/18/19] atorvastatin 80 mg tablet 80 mg PO DAILY CHOLESTEROL 07/10/19 [History Last Taken 12/17/19] insulin aspart U-100 100 unit/mL (3 mL) subcutaneous pen See Protocol SQ TIDCM DM 11/04/19 [History Last Taken 12/18/19] insulin glargine 100 unit/mL (3 mL) subcutaneous pen 22 unit SQ DAILY DM 11/04/19 [History Last Taken 12/18/19] tamsulosin 0.4 mg capsule 0.4 mg PO DAILY PROSTATE 11/04/19 [History Last Taken 12/18/19] amlodipine 5 mg tablet 5 mg PO DAILY 12/18/19 [History Last Taken 12/18/19] losartan 100 mg tablet 100 mg PO DAILY heart 12/18/19 [History Last Taken 12/18/19] amitriptyline 10 mg tablet 20 mg PO QHS 01/28/22 [History Last Taken Unknown] docusate sodium 100 mg tablet 100 mg PO DAILY PRN Constipation 01/28/22 [History Last Taken Unknown] dulaglutide 1.5 mg/0.5 mL subcutaneous pen injector (Trulicity) 1.5 mg subcut WE 01/28/22 [History Last Taken Unknown] furosemide 80 mg tablet 80 mg PO DAILY 01/28/22 [History Last Taken Unknown] Allergy/AdvReac Type Severity Reaction Status Date / Time Penicillins Allergy Anaphylaxis Verified 03/21/20 13:44 Family History Mother Diabetes Heart disease Hypertension Father Diabetes Heart disease Hypertension Surgical History History of heart artery stent History of stent insertion of renal artery Social History (Updated 03/21/20 @ 14:[address] Earl Gonzales MD) Smoking Status: Never smoker second hand exposure: No alcohol intake: never substance use type: does not use ROS <HAIM Anderson - Last Filed: 01/28/22 18:38> ROS ED ROS Narrative Constitutional: Negative for fever, chills, weight loss, weakness Eyes: Negative for vision loss, vision change, double vision ENT: Negative for any sore throat, ear pain, congestion Cardiovascular: Negative for any chest pain, tightness, palpitations Respiratory: Negative for any cough, sputum production, hemoptysis, dyspnea, dyspnea on exertion, orthopnea Gastrointestinal: Negative for any abdominal pain, nausea, vomiting, diarrhea, constipation, blood in stool, blood in vomit : Negative for any urinary frequency, dysuria, retention, blood in urine Muscle skeletal: Negative for any muscle joint pain, stiffness, myalgias, arthralgias, neck pain, back pain Neurological: Negative for any headache, syncope, numbness or tingling, dizziness Skin: Negative for any rashes, lumps, itching, lacerations. Positive for abrasion to the bridge of the nose, right elbow Psychiatric: Negative for any depression, anxiety, stress, suicidal ideation, homicidal ideation Hematologic: Negative for any easy bruising, excessive bruising, easy bleeding Allergies: Negative for any eczema, hives, rash EXAM <HAIM Anderson - Last Filed: 01/28/22 18:38> Physical Exam Narrative Exam Narrative: Vital signs reviewed. HEET: Head normocephalic atraumatic, TMs clear bilaterally. Posterior pharynx is clear, moist mucous membranes. Nares clear bilaterally. Pupils are equal round react to light. Negative for any hemotympanum, septal hematoma, patient has a superficial abrasion to the bridge of the nose. Neck: Supple with no lymphadenopathy or tenderness. No signs of meningismus, negative jolt sign. Cardiac: Regular rate and rhythm no murmurs gallops or rubs, equal peripheral pulses bilaterally. Respiratory: Lungs clear to auscultation bilaterally. No chest tenderness. Abdomen: Soft, nontender, nondistended. No abdominal bruit or pulsatile masses. No hepatosplenomegaly Extremities: No peripheral edema, no signs of gross trauma or deformity. Active full range of motion of all extremities. Abrasion of the right elbow Neuro: Cranial nerves II through XII intact, no focal neurological deficits. NIH stroke scale 0. Patient moving all extremities. Skin: Clean dry and intact with no rash, purpura, petechiae, vesicles or pustules. Backs/flank: No CVA tenderness, no midline spinal tenderness, no deformity. Psych: Normal mood and affect. No SI, HI or acute psychosis. Const Vital Signs: 01/28/22 15:49 01/28/22 16:05 01/28/22 18:25 Temperature 97.0 F L Temperature Source Temporal Pulse Rate 85 86 Respiratory Rate 18 18 Respiratory Depth Normal Respiratory Pattern Normal Blood Pressure 110/86 H 139/66 H Blood Pressure Mean 94 90 Pulse Ox 97 95 Oxygen Delivery Method Room Air Room Air Room Air Positive well nourished and well developed General Appearance ED: well developed <Dr. Primo Villegas DO - Last Filed: 01/28/22 19:20> Physical Exam Const Vital Signs: 01/28/22 15:49 01/28/22 16:05 01/28/22 18:25 Temperature 97.0 F L Temperature Source Temporal Pulse Rate 85 86 Respiratory Rate 18 18 Respiratory Depth Normal Respiratory Pattern Normal Blood Pressure 110/86 H 139/66 H Blood Pressure Mean 94 90 Pulse Ox 97 95 Oxygen Delivery Method Room Air Room Air Room Air MDM <HAIM Anderson - Last Filed: 01/28/22 18:38> [facility] Lab Data Labs: Laboratory Results - last 24 hr 01/28/22 01/28/22 16:53 16:53 WBC 10.7 RBC 4.61 Hgb 13.1 Hct 39.5 L MCV 85.7 MCH 28.4 MCHC 33.2 RDW Std Deviation 45.9 H RDW Coeff of Courtney 14.7 H Plt Count 281 MPV 10.5 Immature Gran % (Auto) 0.600 Neut % (Auto) 81.6 H Lymph % (Auto) 11.6 L Cloud % (Auto) 5.4 Eos % (Auto) 0.3 Baso % (Auto) 0.5 Absolute Neuts (auto) 8.7 H Absolute Lymphs (auto) 1.24 Nucleated RBC % 0 Sodium 134 L Potassium 4.4 Chloride 100 Carbon Dioxide 26.0 Anion Gap 8 BUN 72 H Creatinine 3.71 H Estim Creat Clear Calc 13.12 Est GFR (MDRD) Af Amer 20 L Est GFR (MDRD) Non-Af 17 L BUN/Creatinine Ratio 19.4 Glucose 244 H Calcium 8.8 Troponin I High Sens 28 Radiography Diagnostic Testing: Clinical Impression(s) from Imaging Studies Brain CT 01/28/22 16:26 IMPRESSION: No acute intracranial or calvarial abnormality. There is no major interval change. Electronically Signed: Wenceslao Coulter DO at 17:49 EST Reading Location ID and State: [place] [facility] [employer] Tel [phone], Service support , Cervical Spine CT 01/28/22 16:28 IMPRESSION: Degenerative changes of the cervical spine. There is no acute fracture or subluxation. There is no major interval change. Note: MRI is more sensitive than CT in detecting cord injury, ligamentous injury and epidural hematoma. If there is continued clinical concern for any of these entities, MRI should be considered. Electronically Signed: Wenceslao Coulter DO at 17:48 EST Reading Location ID and State: [employer] Tel [phone], Service support , Facial/Sinus 01/28/22 16:28 IMPRESSION: 1. Question small nondisplaced nasal bone fractures with overlying soft tissue swelling. 2. Frontal and anterior ethmoid sinusitis. Electronically Signed: Wenceslao Coulter, DO at 17:52 EST Reading Location ID and State: [facility] / [place] Tel [phone], Service support , Chest X-Ray 01/28/22 16:45 IMPRESSION: No acute cardiopulmonary disease or interval change. Electronically Signed: Wenceslao CoulterDO at 17:28 EST Reading Location ID and State: [address] [place] [address] Tel [phone], Service support , EKG Sinus rhythm with first-degree AV block. : Attestation: I personally reviewed and interpreted this EKG as follows: Interpretation: No Acute Injury Pattern Comments: Sinus rhythm with first-degree AV block, rate of 88 bpm, OH interval 278 ms, QRS duration 138,000, no acute ST elevation, no acute infarct noted. Treatment and Re-Evaluation Narrative: Patient alert and orient x4, patient is in no distress, vital signs are stable, nontoxic. Patient presents the emergency department after mechanical fall injuring his face, patient did have difficulty ambulating after this fall and the patient's daughter was concerned. Patient did receive a full work-up, patient received multiple radiologic exams. Patient had a CT scan of the brain, cervical spine these were both unremarkable for any acute abnormality, CT of the facial bones did show a questionable small nondisplaced nasal bone fracture with overlying soft tissue injury. Patient did receive a chest x-ray entered by ER physician which showed no acute cardiopulmonary disease. Patient's laboratory values show normal CBC, patient's chemistries showed an acute kidney injury with a creatinine of 3.7. Patient runs normally between 1.6 and 1.8 however this is quite an increase. Patient also is been more weak over the last 7 days. Secondary to these acute kidney injury, fall, patient be admitted to the hospital. Spoke with hospitalist, patient and family agree. <Dr. Primo Villegas, DO - Last Filed: 01/28/22 19:20> [facility] Narrative Medical decision making narrative: This patient was seen with a PA/HAND COOPER HELPER Individually assessed they patient including history and physical. I have reviewed everything on the chart that is available and agree with the documentation provided by the PA/HAND COOPER HELPER including discussion about the assessment, treatment plan, discussion, and return precautions. Patient presenting after fall with injury to the face. CT of the brain, cervical spine are normal. Chest x-ray by interpretation shows no acute cardiopulmonary process and radiologist interpreted this and agrees there is a small nondisplaced nasal bone fracture on CT of the facial bones. CBC is within normal limits. BMP shows elevation of creatinine at 3.71. his last creatinine was 1.5. Patient was given IV fluids. Glucose lightly elevated to 44 without anion gap. The patient's acute kidney injury I feel he needs to be admitted to the hospital. Impression: 1. Nasal bone fracture 2. Mechanical fall 3. Acute kidney injury 4. Hyperglycemia 5. Closed head injury Lab Data Attestation: I reviewed the patient's lab results. Labs: Laboratory Results - last 24 hr 01/28/22 01/28/22 16:53 16:53 WBC 10.7 RBC 4.61 Hgb 13.1 Hct 39.5 L MCV 85.7 MCH 28.4 MCHC 33.2 RDW Std Deviation 45.9 H RDW Coeff of Courtney 14.7 H Plt Count 281 MPV 10.5 Immature Gran % (Auto) 0.600 Neut % (Auto) 81.6 H Lymph % (Auto) 11.6 L Cloud % (Auto) 5.4 Eos % (Auto) 0.3 Baso % (Auto) 0.5 Absolute Neuts (auto) 8.7 H Absolute Lymphs (auto) 1.24 Nucleated RBC % 0 Sodium 134 L Potassium 4.4 Chloride 100 Carbon Dioxide 26.0 Anion Gap 8 BUN 72 H Creatinine 3.71 H Estim Creat Clear Calc 13.12 Est GFR (MDRD) Af Amer 20 L Est GFR (MDRD) Non-Af 17 L BUN/Creatinine Ratio 19.4 Glucose 244 H Calcium 8.8 Troponin I High Sens 28 Radiography Diagnostic Testing: Clinical Impression(s) from Imaging Studies Brain CT 01/28/22 16:26 IMPRESSION: No acute intracranial or calvarial abnormality. There is no major interval change. Electronically Signed: Wenceslao Coulter DO at 17:49 EST , Cervical Spine CT 01/28/22 16:28 IMPRESSION: Degenerative changes of the cervical spine. There is no acute fracture or subluxation. There is no major interval change. Note: MRI is more sensitive than CT in detecting cord injury, ligamentous injury and epidural hematoma. If there is continued clinical concern for any of these entities, MRI should be considered. Electronically Signed: Wenceslao Coulter DO at 17:48 EST , Facial/Sinus 01/28/22 16:28 IMPRESSION: 1. Question small nondisplaced nasal bone fractures with overlying soft tissue swelling. 2. Frontal and anterior ethmoid sinusitis. Electronically Signed: Wenceslao Coulter DO at 17:52 EST Reading Location ID and State: [email or web address] / [place] Tel [phone], Service support , Chest X-Ray 01/28/22 16:45 IMPRESSION: No acute cardiopulmonary disease or interval change. Electronically Signed: Wenceslao Coulter DO at 17:28 EST , Discharge Plan Dx/Rx/DC Orders Clinical Impression: Acute kidney injury, Fall, Fracture of nasal bone Disposition Disposition: Acute Care [facility]
--- NOTE | 2022-01-28 16:45 | RAD_ITS ---
STUDY: X-RAY CHEST REASON FOR EXAM: Male, 81 years old. Cough. TECHNIQUE: Single AP portable view of the chest. COMPARISON: December 18, 2019 FINDINGS: The lungs are clear and expanded. There is no demonstrated pleural abnormality. Normal size heart. Normal mediastinum and patricio. Normal visualized pulmonary arteries. There is atherosclerotic calcification of the aortic arch with tortuosity. No osseous changes. There is no demonstrated abnormality of the visualized soft tissue structures of the upper abdomen. RAD/Chest 1 View (Portable) IMPRESSION: No acute cardiopulmonary disease or interval change. Electronically Signed: Wenceslao Coulter DO at 17:28 EST ,
[2022-01-28 17:04] LABS: Absolute Lymphocyte Count 1.24 X10^3/uL (0.83-4.51); Absolute Neutrophil Count 8.7 X10^3/uL (2.0-7.7); Basophil# 0.05 X10^3/uL; Basophil% 0.5 % (0-1); Eosinophil# 0.03 X10^3/uL; Eosinophils% 0.3 % (0-5); Hematocrit 39.5 % (40-54); Hemoglobin 13.1 g/dL (13.0-16.5); Lymphocyte # 1.24 X10^3/ul (0.83-4.51); Lymphocyte % 11.6 % (19-41); Mean Corp Hgb Conc 33.2 g/dL (32-36); Mean Corpuscular Hgb 28.4 pg (27.0-32.0); Mean Corpuscular Volume 85.7 fL (80-94); Mean Platelet Vol. 10.5 fl (6.2-12.0); Monocyte# 0.58 X10^3/uL; Monocyte% 5.4 % (0-10); NRBC Flagged by Analyzer 0 % (0-5); Neutrophil # 8.71 X10^3/uL (2.7-7.7); Neutrophil % 81.6 % (47-70); Platelet Count 281 K/mm3 (150-450); RBC Distribution Width CV 14.7 % (11.6-14.6); RBC Distribution Width SD 45.9 fl (35.1-43.9); Red Blood Count 4.61 M/mm3 (4.6-6.2); White Blood Count 10.7 K/mm3 (4.4-11.0)
[2022-01-28] MEDS: 0.9% Normal Saline 1,000 ML 1000 ML IV (17:10)
[2022-01-28 17:50] LABS: Anion Gap 8 (5-15); BUN 72 mg/dL (7-18); BUN/Creat Ratio 19.4 RATIO (10-20); Calcium,Total 8.8 mg/dL (8.5-10.1); Chloride 100 mmol/L (98-107); Creatinine, Serum 3.71 mg/dL (0.70-1.30); EST Glomerular Filtration Rate 17 mL/min (>60); Est Glom Filt Rate - Afr Amer 20 mL/min (>60); Estimated Creatinine Clearance 13.12 ml/min; Glucose 244 mg/dL (74-106); Potassium 4.4 mmol/L (3.5-5.1); Sodium Level 134 mmol/L (136-145); Troponin-I HS 28 pg/mL (3.0-78.0)
--- NOTE | 2022-01-28 18:14 | HP.PCM.HOS_ITS ---
HPI - General General Date of Admission: 01/28/22 Date of Service: 01/28/22 Chief Complaint: Fall HPI Narrative The patient is an 81 y/o M w/ PMHx: Anxiety and Depression, BPH, CAD s/p PCI, HTN, HLD, Dementia unclear type with unclear behavioral disturbance history, Diabetes mellitus type II, Chronic constipation, CKD stage III unclear subtype, Hx prior renal artery stent placement who presents to the [facility] ED on 01/28/22 with history of frequent falls unfortunately with fall on day of presentation noted to have lost his balance falling towards the ground where he struck his face with no specific loss of consciousness; however, he was initially unstable and appeared debilitated requiring family assistance to get up prompting the ED pr esentation although they report that he is improved since his initial arrival. They do report that he was recently evaluated secondary to significant fall down a full flight of stairs and had lab work-up at that time however this was greater than 2 weeks prior per the report at outside tertiary facility. Work-up in the ED included T 97, heart rate 85, BP 110/86, respiratory rate 18, 97% on room air, CBC with WBC 10.7, hemoglobin 13.1, platelet 281 with left shift, BMP with sodium 134, BUN/creat 72/3.71, glucose 244, troponin 28, CT of the brain with no acute intracranial or calvarial abnormalities, CT cervical spine with degenerative changes of the cervical spine with no acute fracture or subluxation with no major interval change, CT facial with a questionable small nondisplaced nasal bone fracture with overlying soft tissue swelling, frontal and anterior ethmoid sinusitis, chest x-ray with no acute cardiopulmonary findings, EKG with sinus rhythm with a first-degree AV block with no acute evidence of ischemia. In the ED patient administered 1 L normal saline bolus. [facility] Medical History (Updated 01/28/22 @ 18:38 by HAIM Anderson) Constipation Dementia Diabetes type 2, controlled Headache Hearing problem Heart disease Hemorrhoids High cholesterol HTN (hypertension) Kidney disease Rectal bleeding Home Medications donepezil 10 mg tablet 10 mg PO DAILY MEMORY 01/01/18 [History Last Taken 12/18/19] magnesium oxide 400 mg PO DAILY SUPPLEMENT 03/03/19 [History Last Taken 12/18/19] sertraline 50 mg tablet 50 mg PO DAILY DEPRESSION 03/03/19 [History Last Taken 12/18/19] aspirin 81 mg tablet,delayed release (Adult Low Dose Aspirin) 81 mg PO DAILY 07/10/19 [History Last Taken 12/18/19] atorvastatin 80 mg tablet 80 mg PO DAILY CHOLESTEROL 07/10/19 [History Last Taken 12/17/19] insulin aspart U-100 100 unit/mL (3 mL) subcutaneous pen See Protocol SQ TIDCM DM 11/04/19 [History Last Taken 12/18/19] insulin glargine 100 unit/mL (3 mL) subcutaneous pen 22 unit SQ DAILY DM 11/04/19 [History Last Taken 12/18/19] tamsulosin 0.4 mg capsule 0.4 mg PO DAILY PROSTATE 11/04/19 [History Last Taken 12/18/19] amlodipine 5 mg tablet 5 mg PO DAILY 12/18/19 [History Last Taken 12/18/19] losartan 100 mg tablet 100 mg PO DAILY heart 12/18/19 [History Last Taken 12/18/19] amitriptyline 10 mg tablet 20 mg PO QHS 01/28/22 [History Last Taken Unknown] docusate sodium 100 mg tablet 100 mg PO DAILY PRN Constipation 01/28/22 [History Last Taken Unknown] dulaglutide 1.5 mg/0.5 mL subcutaneous pen injector (Trulicity) 1.5 mg subcut WE 01/28/22 [History Last Taken Unknown] furosemide 80 mg tablet 80 mg PO DAILY 01/28/22 [History Last Taken Unknown] Allergy/AdvReac Type Severity Reaction Status Date / Time Penicillins Allergy Anaphylaxis Verified 03/21/20 13:44 Family History Mother Diabetes Heart disease Hypertension Father Diabetes Heart disease Hypertension Surgical History History of heart artery stent History of stent insertion of renal artery Social History (Updated 01/28/22 @ 19:[address] Chamraine Araya MD) household members: spouse Smoking Status: Never smoker second hand exposure: No alcohol intake: never substance use type: does not use ROS ROS Narrative Admission Review of Systems: CONSTITUTIONAL: No weight loss, fever, chills, + weakness or fatigue. HEENT: Eyes: No visual loss, blurred vision, double vision or yellow sclerae. Ears, Nose, Throat: No hearing loss, sneezing, congestion, runny nose or sore throat. SKIN: + Upper lesions, recent falls. CARDIOVASCULAR: No chest pain, chest pressure or chest discomfort, palpitations, edema, orthopnea, syncopal events. RESPIRATORY: No shortness of breath, cough or sputum, wheezing, hemoptysis. GASTROINTESTINAL: No anorexia, nausea, vomiting or diarrhea, abdominal pain, melena, BRBPR. GENITOURINARY: No dysuria, frequency, urgency or retention. NEUROLOGICAL: + Frequent falls, underlying dementia, initially difficulty with balance but improving per family. No headache, dizziness, syncope, paralysis, numbness or tingling in the extremities, focal weakness, change in bowel or bladder control, seizure. MUSCULOSKELETAL: No muscle, back pain, joint pain or stiffness. HEMATOLOGIC: + Easy bleeding or bruising. LYMPHATICS: No enlarged nodes. No history of splenectomy. PSYCHIATRIC: No history of depression or anxiety. ENDOCRINOLOGIC: No reports of sweating, cold or heat intolerance. No polyuria or polydipsia. ALLERGIES: No history of asthma, hives, eczema or rhinitis. Vital Signs Vital Signs Vital Signs: 01/28/22 15:49 01/28/22 16:05 Temperature 97.0 F L Temperature Source Temporal Pulse Rate 85 Respiratory Rate 18 Respiratory Depth Normal Respiratory Pattern Normal Blood Pressure 110/86 H Blood Pressure Mean 94 Pulse Ox 97 Oxygen Delivery Method Room Air Room Air Weight Weight: 165 lb 2.02 oz Body Mass Index (BMI) 27.4 Physical Exam Narrative Physical Examination: General: Awake, alert, oriented to self, place and some recent events, does have underlying dementia, very hard of hearing, remains cooperative and following exam request, seated upright in ED bed, eating, no acute distress Skin: Normal color, normal turgor, no icterus, no cyanosis except for very staged ecchymoses as well as recent small laceration across his nasal bridge and abrasion to the right elbow. HEENT: AT except first findings as noted on skin exam/NC, EOMI, PERRLA, MMM, no carotid bruits or JVD noted. Lungs: Mildly diminished, greater bases, appropriate effort no rales, ronchi or wheezing. Heart: Regular rate and rhythm; no gallop, rub audible. Abdomen: Soft, overweight, NTTP, ND, normal BS, no HSM. Extremities: No cyanosis, clubbing, or edema. Neurological: Patient awake, alert, oriented as noted, cognitive function appears currently based intact per family report with underlying dementia; pupils equally reactive to light and accommodation, cranial nerves grossly normal, moving all 4 extremities, no focal deficits, strength moderately global decreased. Psychiatric: Affect appears mildly flat otherwise no acute evidence of depressive or anxiety feelings. Results Lab / Micro Data Result Diagrams: 01/28/22 16:53 01/28/22 16:53 Labs: Laboratory Results - last 24 hr 01/28/22 16:53: WBC 10.7, RBC 4.61, Hgb 13.1, Hct 39.5 L, MCV 85.7, MCH 28.4, MCHC 33.2, RDW Std Deviation 45.9 H, RDW Coeff of Courtney 14.7 H, Plt Count 281, MPV 10.5, Immature Gran % (Auto) 0.600, Neut % (Auto) 81.6 H, Lymph % (Auto) 11.6 L, [place] % (Auto) 5.4, Eos % (Auto) 0.3, Baso % (Auto) 0.5, Absolute Neuts (auto) 8.7 H, Absolute Lymphs (auto) 1.24, Nucleated RBC % 0 01/28/22 16:53: Sodium 134 L, Potassium 4.4, Chloride 100, Carbon Dioxide 26.0, Anion Gap 8, BUN 72 H, Creatinine 3.71 H, Estim Creat Clear Calc 13.12, Est GFR (MDRD) Af Amer 20 L, Est GFR (MDRD) Non-Af 17 L, BUN/Creatinine Ratio 19.4, Glucose 244 H, Calcium 8.8, Troponin I High Sens [address] 01/28/22 16:26 IMPRESSION: No acute intracranial or calvarial abnormality. There is no major interval change. Electronically Signed: Wenceslao Coulter DO at 17:49 EST Reading Location ID and State: [facility] / [place] Tel [phone], Service support , Cervical Spine CT 01/28/22 16:28 IMPRESSION: Degenerative changes of the cervical spine. There is no acute fracture or subluxation. There is no major interval change. Note: MRI is more sensitive than CT in detecting cord injury, ligamentous injury and epidural hematoma. If there is continued clinical concern for any of these entities, MRI should be considered. Electronically Signed: Wenceslao Coulter DO at 17:48 EST Reading Location ID and State: [address] [place] [address] Tel [phone], Service support , Facial/Sinus 01/28/22 16:28 IMPRESSION: 1. Question small nondisplaced nasal bone fractures with overlying soft tissue swelling. 2. Frontal and anterior ethmoid sinusitis. Electronically Signed: Wenceslao Coulter DO at 17:52 EST Reading Location ID and State: [employer] / [place] Tel [phone], Service support , Chest X-Ray 01/28/22 16:45 IMPRESSION: No acute cardiopulmonary disease or interval change. Electronically Signed: Wenceslao Coulter DO at 17:28 EST Reading Location ID and State: [address] [place] [address] Tel [phone], Service support , Assessment & Plan Assessment/Plan (1) Acute kidney injury: (2) Fall: PLAN: Plan The patient is an 81 y/o M w/ PMHx: Anxiety and Depression, BPH, CAD s/p PCI, HTN, HLD, Dementia unclear type with unclear behavioral disturbance history, Diabetes mellitus type II, Chronic constipation, CKD stage III unclear subtype, Hx prior renal artery stent placement who presents to the [facility] ED on 01/28/22 with history of frequent falls unfortunately with fall on day of presentation noted to have lost his balance falling towards the ground where he struck his face with no specific loss of consciousness prompting ED evaluation. #1. Acute kidney injury on CKD stage III unclear subtype: Unclear exact etiology, admission BUN/Cr 72/3.71, prior baseline creatinine noted to be 1.32 most recently 12/18/19 1.85 therefore baseline currently is not well known as no labs performed in the or available in the system. Will judiciously hydrate, hold nephrotoxic medications and repeat chemistry in AM, will also obtain FeNa and renal ultrasound assessment. Patient family does report that he does follow with a kidney doctor in [place] but they are uncertain of the name. #2. Mechanical fall with abrasions and questionable small nondisplaced nasal bone fracture: Noted on CT face, given non-displaced will plan follow-up with ENT outpatient once edema resolved, encourage HOB, ice. #3. Dementia unclear type with unclear behavioral disturbance history: Complicates presentation, will continue patient home donepezil, PT/OT/CM consultations for discharge planning. #4. Hypertension: Temporarily holding all nephrotoxic medications, will continue metoprolol and amlodipine only with hold parameters pending pressures, as needed IV hydralazine in interim. #5. Hyperlipidemia: Continue patient home statin therapy. #6. CAD: Status post prior PCI, will continue aspirin statin, metoprolol, holding losartan given MARLA as noted, resume once appropriate. #7. Anxiety and depression: We will continue patient home sertraline regimen given its low dose however may need readjustment if function worsens further. #8. Diabetes mellitus type II: Will continue home insulin regimen, ADA diet, accu checks w/ ISS. #9. BPH: We will continue patient on Flomax regimen. #10. DVT prophylaxis: SCDs, heparin. #11. CODE status: Patient HCPOA is his who is present and his secondary is his daughter who is also present and living will is currently in place. Discussed CODE status at length including difference between FULL code, DNR-CCA and DNR-CC status. Following discussions about the differences in these status, requested DNR-CCA, no intubation, no aggressive interventions. Advanced Care Planning Face to Face Time: 16 minutes. Charges/Coding Visit Charges Inpatient E&M: 94226 Init Hosp L3 Procedures Hospitalists Procedures: 54960 Advncd Care Plan 30 Min
[2022-01-28 18:25] VITALS: BP 139/66; PULSE 86; RESP 18; O2SAT 95
[2022-01-28 19:51] VITALS: BP 121/76; PULSE 82; RESP 18; TEMP 36.7; O2SAT 97
[2022-01-28 20:37] VITALS: BP 135/82; PULSE 86; RESP 16; TEMP 36.4; O2SAT 99
[2022-01-28 21:33] VITALS: BMI 27.1
[2022-01-28] MEDS: 0.9% Normal Saline 1,000 ML 100 ML IV (22:10)
[2022-01-28] MEDS: Insulin Lispro 100 UNIT/ML INSULN.PEN SC (22:11)
[2022-01-28] MEDS: Donepezil HCl 10 MG Tablet PO (22:44)
[2022-01-29 02:48] VITALS: BP 141/78; PULSE 84; RESP 18; TEMP 37.3; O2SAT 96
[2022-01-29 05:50] LABS: Absolute Lymphocyte Count 1.67 X10^3/uL (0.83-4.51); Absolute Neutrophil Count 7.1 X10^3/uL (2.0-7.7); Basophil# 0.04 X10^3/uL; Basophil% 0.4 % (0-1); Eosinophil# 0.22 X10^3/uL; Eosinophils% 2.2 % (0-5); Hematocrit 31.1 % (40-54); Hemoglobin 10.5 g/dL (13.0-16.5); Lymphocyte # 1.67 X10^3/ul (0.83-4.51); Lymphocyte % 16.7 % (19-41); Mean Corp Hgb Conc 33.8 g/dL (32-36); Mean Corpuscular Volume 85.9 fL (80-94); Mean Platelet Vol. 10.9 fl (6.2-12.0); Monocyte# 0.91 X10^3/uL; Monocyte% 9.1 % (0-10); NRBC Flagged by Analyzer 0 % (0-5); Neutrophil # 7.11 X10^3/uL (2.7-7.7); Neutrophil % 71.2 % (47-70); Platelet Count 231 K/mm3 (150-450); RBC Distribution Width CV 14.6 % (11.6-14.6); RBC Distribution Width SD 45.8 fl (35.1-43.9); Red Blood Count 3.62 M/mm3 (4.6-6.2)
[2022-01-29] MEDS: 0.9% Normal Saline 1,000 ML 100 ML IV ×2 (06:24→17:24)
[2022-01-29 06:32] LABS: ALB/GLOB Ratio 0.7 RATIO (0.9-2.4); AST(SGOT) 16 U/L (15-37); Alanine Aminotransfer ALT/SGPT 18 U/L (16-61); Albumin, Serum 2.6 g/dL (3.2-5.0); Alkaline Phosphatase 116 U/L (45-117); Anion Gap 5 (5-15); BUN 70 mg/dL (7-18); BUN/Creat Ratio 21.3 RATIO (10-20); Calcium,Total 7.6 mg/dL (8.5-10.1); Chloride 108 mmol/L (98-107); Creatinine, Serum 3.28 mg/dL (0.70-1.30); EST Glomerular Filtration Rate 19 mL/min (>60); Est Glom Filt Rate - Afr Amer 23 mL/min (>60); Estimated Creatinine Clearance 14.84 ml/min; Globulin 3.9 g/dL (2.2-4.2); Glucose 178 mg/dL (74-106); Potassium 3.8 mmol/L (3.5-5.1); Protein, Total 6.5 g/dL (6.4-8.2); Sodium Level 138 mmol/L (136-145)
[2022-01-29 07:38] LABS: Bacteria 0 SEEN /hpf (None Seen); Mucous, Urine 0 SEEN /hpf (<or=2+); Red Blood Cells-Urine 0 SEEN /hpf (0-5); White Blood Cells 0 SEEN /hpf (0-5)
[2022-01-29 07:42] LABS: Color, Urine Yellow (Yellow); Glucose, Dipstick Normal (Normal); Ketone-Dipstick Negative (Negative); Leukocyte Esterase-Dipstick Negative /ul (Negative); Nitrite-Dipstick Negative (Negative); Occult Blood-Urine 10 /ul (Negative); Protein-Dipstick 30 mg/dl (Negative); Specific Gravity, Urine 1.015 (1.002-1.030); Urine Bilirubin Dipstick Negative (Negative); Urine Clarity Clear (Clear); Urine Urobilinogen Normal (Normal)
[2022-01-29 07:47] VITALS: O2SAT 96
[2022-01-29 07:52] LABS: Squamous Epithelial Cells - UA 0-5 SEEN /hpf (0-5)
[2022-01-29 07:57] LABS: Urine Sodium 53 mmol/L (Not Establ.)
--- NOTE | 2022-01-29 08:00 | US_ITS ---
STUDY: RENAL ULTRASOUND - COMPLETE REASON FOR EXAM: Male, 81 years old. Elevated BUN/creatinine TECHNIQUE: Ultrasound evaluation of the kidneys was performed with real-time and static liang-scale imaging. COMPARISON: None. FINDINGS: Bilateral renal cortices are echogenic suggesting underlying medical renal disease RIGHT KIDNEY: Normal location of the right kidney, which is normal in size. The right kidney measures 10.4 x 5.5 x 5.6 cm. There is a normal cortex of the right kidney. The renal cortex measures 1.5 cm. There is no right renal mass or cyst. There are no right renal calculi. There is no right hydronephrosis. DISTAL RIGHT URETER: There is non-visualization of the distal right ureter. There is no demonstrated right ureterovesical junction calculus. There is a visualized right ureteral jet. LEFT KIDNEY: Normal location of the left kidney, which is normal in size. The left kidney measures 10.7 x 5.5 x 5.8 cm. There is a normal cortex of the left kidney. The renal cortex measures 1.1 cm. There is no left renal mass or cyst. Multiple nonobstructing stones, largest measures 1.4 x 1.5 x 1.5 cm. There is no left hydronephrosis. DISTAL LEFT URETER: There is non-visualization of the distal left ureter. There is no demonstrated left ureterovesical junction calculus. There is a visualized left ureteral jet. AORTA: There is no elongation or tortuosity of the abdominal aorta. I.V.C.: The IVC is patent. BLADDER: The bladder is incompletely distended US/Kidney and Bladder IMPRESSION: No obstructive uropathy, or suspicious solid renal lesion. Renal cortices are echogenic suggesting underlying medical renal disease Nonobstructing left nephrolithiasis Electronically Signed: Moises Schwarz MD at 16:51 EST ,
--- NOTE | 2022-01-29 09:05 | PN.HOSP_ITS ---
Subjective Subjective Keeps asking me why he is here. When I tell him it is due to his kidneys. He states he understands, then asks me again. Objective Data Objective Data Vital Signs: Vital Signs Temp Pulse Resp BP Pulse Ox O2 Del Method 37.3 C 84 18 141/78 H 96 Room Air 01/29/22 02:48 01/29/22 02:48 01/29/22 02:48 01/29/22 02:48 01/29/22 07:47 01/29/22 07:47 Oxygen Delivery Method Room Air Weight: 74.1 kg Body Mass Index (BMI) 27.1 Intake & Output: Intake and Output for Last 24 Hours 01/27/22 01/28/22 01/29/22 23:59 23:59 23:59 Intake Total 1000 / 1600 1823.33 / 1823.33 Balance 1000 / 1600 1823.33 / 1823.33 Lab / Micro Data Result Diagrams: 01/29/22 05:10 01/29/22 05:10 Labs: Laboratory Results - last 24 hr 01/28/22 07:15: Urine Color Yellow, Urine Clarity Clear, Urine pH 6.0, Ur Specific [place] 1.015, Urine Protein 30 H, Urine Glucose (UA) Normal, Urine Ketones Negative, Urine Occult Blood 10 H, Urine Nitrite Negative, Urine Bilirubin Negative, Urine Urobilinogen Normal, Ur Leukocyte Esterase Negative, Urine RBC 0 SEEN, Urine WBC 0 SEEN, Ur Squamous Epith Cells 0-5 SEEN, Urine Bacteria 0 SEEN, Urine Mucus 0 SEEN 01/28/22 07:15: Ur Random Sodium 53, Urine Creatinine 100.00 01/28/22 16:53: WBC 10.7, RBC 4.61, Hgb 13.1, Hct 39.5 L, MCV 85.7, MCH 28.4, MCHC 33.2, RDW Std Deviation 45.9 H, RDW Coeff of Courtney 14.7 H, Plt Count 281, MPV 10.5, Immature Gran % (Auto) 0.600, Neut % (Auto) 81.6 H, Lymph % (Auto) 11.6 L, [place] % (Auto) 5.4, Eos % (Auto) 0.3, Baso % (Auto) 0.5, Absolute Neuts (auto) 8.7 H, Absolute Lymphs (auto) 1.24, Nucleated RBC % 0 01/28/22 16:53: Sodium 134 L, Potassium 4.4, Chloride 100, Carbon Dioxide 26.0, Anion Gap 8, BUN 72 H, Creatinine 3.71 H, Estim Creat Clear Calc 13.12, Est GFR (MDRD) Af Amer 20 L, Est GFR (MDRD) Non-Af 17 L, BUN/Creatinine Ratio 19.4, Glucose 244 H, Calcium 8.8, Troponin I High Sens 28 01/29/22 05:10: WBC 10.0, RBC 3.62 L, Hgb 10.5 L, Hct 31.1 L, MCV 85.9, MCH 29.0, MCHC 33.8, RDW Std Deviation 45.8 H, RDW Coeff of Courtney 14.6, Plt Count 231, MPV 10.9, Immature Gran % (Auto) 0.400, Neut % (Auto) 71.2 H, Lymph % (Auto) 16 .7 L, [place] % (Auto) 9.1, Eos % (Auto) 2.2, Baso % (Auto) 0.4, Absolute Neuts (auto) 7.1, Absolute Lymphs (auto) 1.67, Nucleated RBC % 0 01/29/22 05:10: Sodium 138, Potassium 3.8, Chloride 108 H, Carbon Dioxide 25.0, Anion Gap 5, BUN 70 H, Creatinine 3.28 H, Estim Creat Clear Calc 14.84, Est GFR (MDRD) Af Amer 23 L, Est GFR (MDRD) Non-Af 19 L, BUN/Creatinine Ratio 21.3 H, Glucose 178 H, Calcium 7.6 L, Total Bilirubin 0.40, AST 16, ALT 18, Alkaline Phosphatase 116, Total Protein 6.5, Albumin 2.6 L, Globulin 3.9, Albumin/Globulin Ratio 0.7 L Radiography Diagnostic Testing: Radiology Impression Brain CT 01/28/22 16:26 IMPRESSION: No acute intracranial or calvarial abnormality. There is no major interval change. Electronically Signed: Wenceslao Coulter DO at 17:49 EST Reading Location ID and State: [facility] / [place] Tel [phone], Service support , Cervical Spine CT 01/28/22 16:28 IMPRESSION: Degenerative changes of the cervical spine. There is no acute fracture or subluxation. There is no major interval change. Note: MRI is more sensitive than CT in detecting cord injury, ligamentous injury and epidural hematoma. If there is continued clinical concern for any of these entities, MRI should be considered. Electronically Signed: Wenceslao CoulterDO at 17:48 EST Reading Location ID and State: [address] [place] [address] Tel [phone], Service support , Facial/Sinus 01/28/22 16:28 IMPRESSION: 1. Question small nondisplaced nasal bone fractures with overlying soft tissue swelling. 2. Frontal and anterior ethmoid sinusitis. Electronically Signed: Wenceslao YfnDO at 17:52 EST Reading Location ID and State: [address] [place] [address] Tel [phone], Service support , Chest X-Ray 01/28/22 16:45 IMPRESSION: No acute cardiopulmonary disease or interval change. Electronically Signed: Wenceslao CoulterDO at 17:28 EST Reading Location ID and State: [facility] Tel [phone], Service support , Physical Exam Const Constitutional Narrative: up in chair. Cardio regular rate, regular rhythm, S1 normal heart sound and S2 normal heart sound GI normal to inspection, nondistended, normoactive bowel sounds, soft to palpation, non-tender and non-distended Extremity normal to inspection Assessment & Plan Assessment/Plan (1) Acute kidney injury: PLAN: Acute kidney injury on CKD stage III unclear subtype: Unclear exact etiolo gy, admission BUN/Cr 72/3.71, prior baseline creatinine noted to be 1.32 most recently 12/18/19 1.85 therefore baseline currently is not well known as no labs performed in the or available in the system. Slightly improved Will judiciously hydrate, hold nephrotoxic medications and repeat chemistry in AM, and renal ultrasound assessment. Patient family does report that he does follow with a kidney doctor in [place] but they are uncertain of the name. FENa unreliable as pt takes furosemide. Check FEUrea (2) Fall: QUALIFIERS: Encounter type: initial encounter Qualified Code(s): W19.XXXA - Unspecified fall, initial encounter PLAN: PT OT eval and treat (3) Fracture of nasal bone: QUALIFIERS: Encounter type: initial encounter Fracture type: closed Qualified Code(s): S02.2XXA - Fracture of nasal bones, initial encounter for closed fracture PLAN: Small nondisplaced nasal bone fracture: Noted on CT face, given non- displaced will plan follow-up with ENT outpatient once edema resolved, encourage HOB, ice PLAN: Plan Chronic conditions: * Dementia unclear type with unclear behavioral disturbance history: Complicates presentation, will continue patient home donepezil, PT/OT/CM consultations for discharge planning. * Hypertension: Temporarily holding all nephrotoxic medications, will continue metoprolol and amlodipine only with hold parameters pending pressures, as needed IV hydralazine in interim. * Hyperlipidemia: Continue patient home statin therapy. * CAD: Status post prior PCI, will continue aspirin statin, metoprolol, holding losartan given MARLA as noted, resume once appropriate. * Anxiety and depression: We will continue patient home sertraline regimen given its low dose however may need readjustment if function worsens further. * Diabetes mellitus type II: Will continue home insulin regimen, ADA diet, accu checks w/ ISS. * BPH: We will continue patient on Flomax regimen. DVT prophylaxis: SCDs, heparin. CODE status: Patient HCPOA is his who is present and his secondary is his daughter who is also present and living will is currently in place. Discussed CODE status at length including difference between FULL code, DNR-CCA and DNR-CC status. Following discussions about the differences in these status, requested DNR-CCA, no intubation, no aggressive interventions. Advanced Care Planning Face to Face Time: 16 minutes. Charges/Coding Visit Charges Inpatient E&M: 59948 Subs Hosp L2
[2022-01-29 09:25] VITALS: BP 134/75; PULSE 86; RESP 18; TEMP 36.6; O2SAT 98
--- NOTE | 2022-01-29 09:31 | NURSING ---
stiven ardon blood sugar checked- 156mg/dl
[2022-01-29] MEDS: Tamsulosin HCl 0.4 MG Capsule 0.8 MG PO (09:32)
[2022-01-29] MEDS: Aspirin E.C. 81 MG Tablet PO (09:33)
[2022-01-29] MEDS: Insulin Glargine-YFGN 100 UNIT/ML Pen 40 UNIT SC (09:33)
[2022-01-29] MEDS: amLODIPine 5 MG Tablet PO (09:33)
[2022-01-29] MEDS: Sertraline 50 MG Tablet PO (09:33)
[2022-01-29] MEDS: Heparin Injection (Vial) 5,000 UNIT/ML VIAL 5000 UNIT SC ×2 (09:33→21:16)
[2022-01-29 11:09] VITALS: BP 134/75; PULSE 86
--- NOTE | 2022-01-29 11:21 | NURSING ---
stiven freestyle-212mg/dl at this time
[2022-01-29] MEDS: Insulin Lispro 100 UNIT/ML INSULN.PEN SC ×3 (11:22→21:20)
--- NOTE | 2022-01-29 14:55 | CASEMGMT ---
RN CM Face to Face with patient for initial transition planning/care coordination assessment. RN CM introduced self and role at [facility]. Patient sitting in chair, alert and confused, at bedside. willing to participate in assessment and is able to answer all questions appropriately. Care providers, pharmacy, and demographics verified. wishes for patient to discharge home, will monitor need for HHC at discharge. CM to provide list of HHC agencies. states she has no further needs or concerns at this time. CM to follow for discharge planning needs that may arise. PCP: [facility], patient has appt on Saturday and family was going to discuss needs with Dr. Cisse. Specialists: Patient follows with [facility] for specialist Preferred Pharmacy: [facility] Insurance: [facility] Prescription Benefit: yes Living Will/HPOA: yes, Carolyne Mack LNOK: , daughter Living Arrangements: Patient lives with in a single story home with 2 steps and grab bar to enter. Per patient is independent at home. Transportation: , daughter DME/HHC: Patient has shower chair, raised toilet, cane, walker and glucometer at home. states that patient has had [facility] HHC. wishes to discuss discharge needs with daughter and follow-up with case management. Disposition Plan: Patient to discharge home with family support and follow-up plans in place. Will monitor for HHC. CM to provide list. Reta PEARCE, RN, CM
--- NOTE | 2022-01-29 16:53 | NURSING ---
stiven ardon glucose- 192mg/dl
[2022-01-29 17:03] VITALS: BP 164/85; PULSE 86; RESP 18; TEMP 37; O2SAT 95
--- NOTE | 2022-01-29 17:08 | CASEMGMT ---
NIKOS LUIS NOTE: NIKOS LUIS to room. and dtr @ bedside. Discussed discharge planning. and dtr interested in HHC. Noted PT/OT evals that pt ambulated 100-150 ft in halls SBA and w/no DME. Discussed [facility] requirements for being homebound and that pt does not meet this criteria. states would be interested in getting script for OP therapy and states would most likely take pt for OP therapy in [place], as they have been there before. She was made aware a script can be provided prior to discharge. Dtr states has to stay w/pt at all times and it's a lot on her and also voices does not get much time for herself/relief. Offered list of private-duty HHC agencies for aides, but they decline. Discussed other options such as other family that may be able to stay w/pt at times to give a break/respite. and dtr also made aware of [facility] and provided w/rac card w/contact info. Offered to send referral to have someone contact them. Dtr declines having referral made at this time and states she plans to call them next week. They decline having other discharge planning needs or concerns and thanked NIKOS LUIS for info/resources. d/c Plan: Home w/family support and OP therapy. Will need script for OP therapy prior to discharge. Shayy PEARCE RN, CM
[2022-01-29] MEDS: Glucerna Shake 120 ML LIQUID PO (17:26)
[2022-01-29] MEDS: Donepezil HCl 10 MG Tablet PO (21:16)
[2022-01-29] MEDS: Atorvastatin Calcium 80 MG Tablet PO (21:16)
[2022-01-29 21:33] VITALS: BP 149/97; PULSE 88; RESP 16; TEMP 36.7; O2SAT 95
[2022-01-30 03:33] VITALS: BP 134/108; PULSE 81; RESP 16; TEMP 36.6; O2SAT 97
[2022-01-30] MEDS: 0.9% Normal Saline 1,000 ML 100 ML IV (03:36)
[2022-01-30 05:59] LABS: Urea Nitrogen, Urine 786 mg/dL (NO RANGE EST.)
--- NOTE | 2022-01-30 06:06 | NURSING ---
Pt blood glucose checked by his own device on left arm. Pt blood sugar 101
[2022-01-30 06:33] LABS: Absolute Neutrophil Count 6.2 X10^3/uL (2.0-7.7); Basophil# 0.05 X10^3/uL; Basophil% 0.6 % (0-1); Eosinophils% 2.3 % (0-5); Hematocrit 32.6 % (40-54); Hemoglobin 10.4 g/dL (13.0-16.5); Lymphocyte % 17.3 % (19-41); Mean Corp Hgb Conc 31.9 g/dL (32-36); Mean Corpuscular Hgb 28.7 pg (27.0-32.0); Mean Corpuscular Volume 89.8 fL (80-94); Mean Platelet Vol. 11.2 fl (6.2-12.0); Monocyte# 0.68 X10^3/uL; Monocyte% 7.8 % (0-10); NRBC Flagged by Analyzer 0 % (0-5); Neutrophil # 6.21 X10^3/uL (2.7-7.7); Neutrophil % 71.5 % (47-70); Platelet Count 224 K/mm3 (150-450); RBC Distribution Width CV 14.5 % (11.6-14.6); RBC Distribution Width SD 47.6 fl (35.1-43.9); Red Blood Count 3.63 M/mm3 (4.6-6.2); White Blood Count 8.7 K/mm3 (4.4-11.0)
--- NOTE | 2022-01-30 06:46 | NURSING ---
Pt daughter Liliana called this AM, updated.
[2022-01-30 06:59] LABS: Anion Gap 6 (5-15); BUN 60 mg/dL (7-18); BUN/Creat Ratio 23.2 RATIO (10-20); Chloride 114 mmol/L (98-107); Creatinine, Serum 2.59 mg/dL (0.70-1.30); EST Glomerular Filtration Rate 25 mL/min (>60); Est Glom Filt Rate - Afr Amer 31 mL/min (>60); Glucose 60 mg/dL (74-106); Potassium 3.8 mmol/L (3.5-5.1); Sodium Level 142 mmol/L (136-145)
--- NOTE | 2022-01-30 07:36 | PCM.PN.HOSP ---
Subjective Subjective Feels well. Denies any complaints. Objective Data Objective Data Vital Signs: Vital Signs Temp Pulse Resp BP Pulse Ox O2 Del Method 36.6 C 81 16 134/108 H 97 Room Air 01/30/22 03:33 01/30/22 03:33 01/30/22 03:33 01/30/22 03:33 01/30/22 03:33 01/30/22 03:33 Oxygen Delivery Method Room Air Weight: 74.1 kg Body Mass Index (BMI) 27.1 Intake & Output: Intake and Output for Last 24 Hours 01/28/22 01/29/22 01/30/22 23:59 23:59 23:59 Intake Total 1000 / 1600 3201.66 / 3201.66 1600 / 1600 Balance 1000 / 1600 3201.66 / 3201.66 1600 / 1600 Lab / Micro Data Result Diagrams: 01/30/22 05:23 01/30/22 05:23 Labs: Laboratory Results - last 24 hr 01/28/22 07:15: Urine Color Yellow, Urine Clarity Clear, Urine pH 6.0, Ur Specific [place] 1.015, Urine Protein 30 H, Urine Glucose (UA) Normal, Urine Ketones Negative, Urine Occult Blood 10 H, Urine Nitrite Negative, Urine Bilirubin Negative, Urine Urobilinogen Normal, Ur Leukocyte Esterase Negative, Urine RBC 0 SEEN, Urine WBC 0 SEEN, Ur Squamous Epith Cells 0-5 SEEN, Urine Bacteria 0 SEEN, Urine Mucus 0 SEEN 01/28/22 07:15: Ur Random Sodium 53, Urine Creatinine 100.00 01/30/22 05:23: WBC 8.7, RBC 3.63 L, Hgb 10.4 L, Hct 32.6 L, MCV 89.8, MCH 28.7, MCHC 31.9 L D, RDW Std Deviation 47.6 H, RDW Coeff of Courtney 14.5, Plt Count 224, MPV 11.2, Immature Gran % (Auto) 0.500, Neut % (Auto) 71.5 H, Lymph % (Auto) 17.3 L, [place] % (Auto) 7.8, Eos % (Auto) 2.3, Baso % (Auto) 0.6, Absolute Neuts (auto) 6.2, Absolute Lymphs (auto) 1.50, Nucleated RBC % 0 01/30/22 05:23: Sodium 142, Potassium 3.8, Chloride 114 H, Carbon Dioxide 22.0, Anion Gap 6, BUN 60 H, Creatinine 2.59 H, Estim Creat Clear Calc 18.80, Est GFR (MDRD) Af Amer 31 L, Est GFR (MDRD) Non-Af 25 L, BUN/Creatinine Ratio 23.2 H, Glucose 60 L, Calcium 8.0 L 01/30/22 05:25: Urine Urea Nitrogen 786 01/30/22 05:25: Urine Creatinine 80.20 Radiography Diagnostic Testing: Radiology Impression Renal Ultrasound 01/29/22 08:00 IMPRESSION: No obstructive uropathy, or suspicious solid renal lesion. Renal cortices are echogenic suggesting underlying medical renal disease Nonobstructing left nephrolithiasis Electronically Signed: Moises Schwarz MD at 16:51 EST Reading Location ID and State: [id number] , Service support , Physical Exam Const alert and no apparent distress Cardio regular rate, regular rhythm, S1 normal heart sound and S2 normal heart sound GI normal to inspection, nondistended, normoactive bowel sounds, soft to palpation, non-tender and non-distended Psych affect normal Assessment & Plan Assessment/Plan (1) Acute kidney injury: PLAN: Improving acute kidney injury on CKD stage III unclear subtype: Unclear exact etiology, admission BUN/Cr 72/3.71, prior baseline creatinine noted to be 1.32 most recently 12/18/19 1.85 therefore baseline currently is not well known as no Patient family does report that he does follow with a kidney doctor in [place] but they are uncertain of the name. Data FENa unreliable as pt takes furosemide. Fractional excretion of urea 42.41% Renal ultrasound showed findings consistent with underlying medical renal disease. Nonobstructive left nephrolithiasis. Plan Continue to hold furosemide Hep-Lock IV (2) Fall: QUALIFIERS: Encounter type: initial encounter Qualified Code(s): W19.XXXA - Unspecified fall, initial encounter PLAN: PT OT eval and treat Plan for home with family and outpatient therapy (3) Fracture of nasal bone: QUALIFIERS: Encounter type: initial encounter Fracture type: closed Qualified Code(s): S02.2XXA - Fracture of nasal bones, initial encounter for closed fracture PLAN: Small nondisplaced nasal bone fracture: Noted on CT face, given non-displaced will plan follow-up with ENT outpatient once edema resolved, encourage HOB, ice PLAN: Plan Chronic conditions: Dementia unclear type with unclear behavioral disturbance history: Complicates presentation, will continue patient home donepezil, PT/OT/CM consultations for discharge planning. Hypertension: Temporarily holding all nephrotoxic medications, will continue metoprolol and amlodipine only with hold parameters pending pressures, as needed IV hydralazine in interim. Hyperlipidemia: Continue patient home statin therapy. CAD: Status post prior PCI, will continue aspirin statin, metoprolol, holding losartan given MARLA as noted, resume once appropriate. Anxiety and depression: We will continue patient home sertraline regimen given its low dose however may need readjustment if function worsens further. Diabetes mellitus type II: Will continue home insulin regimen, ADA diet, accu checks w/ ISS. BPH: We will continue patient on Flomax regimen. DVT prophylaxis: SCDs, heparin. CODE status: Patient HCPOA is his who is present and his secondary is his daughter who is also present and living will is currently in place. Discussed CODE status at length including difference between FULL code, DNR-CCA and DNR-CC status. Following discussions about the differences in these status, requested DNR-CCA, no intubation, no aggressive interventions. Advanced Care Planning DC home with outpt therapy.
[2022-01-30 10:21] VITALS: BP 153/72; PULSE 91; RESP 18; TEMP 36.8; O2SAT 94
[2022-01-30] MEDS: amLODIPine 5 MG Tablet PO (10:30)
[2022-01-30] MEDS: Sertraline 50 MG Tablet PO (10:30)
[2022-01-30] MEDS: Tamsulosin HCl 0.4 MG Capsule 0.8 MG PO (10:30)
[2022-01-30] MEDS: Aspirin E.C. 81 MG Tablet PO (10:30)
[2022-01-30] MEDS: Heparin Injection (Vial) 5,000 UNIT/ML VIAL 5000 UNIT SC (10:31)
[2022-01-30] MEDS: Insulin Glargine-YFGN 100 UNIT/ML Pen 40 UNIT SC (10:41)
--- NOTE | 2022-01-30 11:09 | DCINST_ITS ---
Discharge Instructions Diet Discharge Diet: 2000 Calorie Control Diet Dressing / Incision Call your doctor if you observe: Shortness of breath, Dizziness and Chest pain Follow Up Care Test Results: Test results from this visit will be discussed in further detail at your follow- up appointment, if applicable. Discharge Plan Admission Admit Date/Time: 01/28/22 18:18 Primary Reason for Your Visit: acute kidney injury. Attending Provider: Harris Luu Primary Care Provider: Todd Cisse Consulting Providers: Charmaine Araya Discharge Orders/Prescriptions Prescriptions: Continued donepezil 10 mg tablet 10 mg PO QHS magnesium oxide 400 mg magnesium capsule 400 mg PO DAILY sertraline 50 mg tablet 50 mg PO DAILY aspirin [Adult Low Dose Aspirin] 81 mg tablet,delayed release (DR/EC) 81 mg PO DAILY atorvastatin 80 mg tablet 80 mg PO QHS insulin aspart U-100 100 unit/mL (3 mL) insulin pen See Protocol SQ TIDCM Protocol: 6. Sliding Scale Insulin Custom Condition: mg/dl range Dose/Route: Number of Units Protocol Text: Custom Sliding Scale Label Comments: pt is on now on sliding scale with dr. guerin, and does not have it here in the hospital with him. Rx Instructions: pt is on now on sliding scale with dr. guerin, and does not have it here in the hospital with him. insulin glargine 100 UNIT/ML insulin pen 22 unit SQ DAILY tamsulosin 0.4 MG capsule 0.4 mg PO DAILY amlodipine 5 MG tablet 10 mg PO DAILY losartan 100 MG tablet 100 mg PO DAILY Label Comments: TAKE 1 TABLET BY MOUTH EVERY DAY amitriptyline 10 mg tablet 20 mg PO QHS docusate sodium 100 mg Tablet 100 mg PO DAILY PRN (Reason: Constipation) Trulicity 1.5 mg/0.5 mL pen injector 1.5 mg SUBCUT WE Label Comments: INJECT 1.5MG (1 PEN) INTO THE SKIN ONCE A WEEK Discontinued furosemide 80 mg tablet 80 mg PO DAILY Referrals / Follow Up: [facility] [Provider Group] - Within 2 Weeks Todd Cisse MD [Primary Care Provider] - Within 2 Weeks Disposition Disposition (needs filled in before D/C Order can be placed): Home, Self Care
--- NOTE | 2022-01-30 11:13 | DS.PCM_ITS ---
Providers Date of Admission: 01/28/22 Primary Care Physician: Dr. Todd Cisse MD Reason For Visit: FALLS, MARLA Diagnosis Discharge Diagnosis (1) Acute kidney injury: Status: Acute Code(s): N17.9 - Acute kidney failure, unspecified Plan: Improving acute kidney injury on CKD stage III unclear subtype: Unclear exact etiology, admission BUN/Cr 72/3.71, prior baseline creatinine noted to be 1.32 most recently 12/18/19 1.85 therefore baseline currently is not well known as no Patient family does report that he does follow with a kidney doctor in [place] but they are uncertain of the name. Data * FENa unreliable as pt takes furosemide. * Fractional excretion of urea 42.41% * Renal ultrasound showed findings consistent with underlying medical renal disease. Nonobstructive left nephrolithiasis. Plan * Continue to hold furosemide * Hep-Lock IV (2) Fall: Status: Acute Code(s): W19.XXXA - Unspecified fall, initial encounter Qualifiers: Encounter type: initial encounter Qualified Code(s): W19.XXXA - Unspecified fall, initial encounter Plan: PT OT eval and treat Plan for home with family and outpatient therapy (3) Fracture of nasal bone: Status: Acute Code(s): S02.2XXA - Fracture of nasal bones, initial encounter for closed fracture Qualifiers: Encounter type: initial encounter Fracture type: closed Qualified Code(s): S02.2XXA - Fracture of nasal bones, initial encounter for closed fracture Plan: Small nondisplaced nasal bone fracture: Noted on CT face, given non-displaced will plan follow-up with ENT outpatient once edema resolved, encourage HOB, ice Plan Chronic conditions: * Dementia unclear type with unclear behavioral disturbance history: Complicates presentation, will continue patient home donepezil, PT/OT/CM consultations for discharge planning. * Hypertension: Temporarily holding all nephrotoxic medications, will continue metoprolol and amlodipine only with hold parameters pending pressures, as needed IV hydralazine in interim. * Hyperlipidemia: Continue patient home statin therapy. * CAD: Status post prior PCI, will continue aspirin statin, metoprolol, holding losartan given MARLA as noted, resume once appropriate. * Anxiety and depression: We will continue patient home sertraline regimen given its low dose however may need readjustment if function worsens further. * Diabetes mellitus type II: Will continue home insulin regimen, ADA diet, accu checks w/ ISS. * BPH: We will continue patient on Flomax regimen. DVT prophylaxis: SCDs, heparin. CODE status: Patient TREMAYNE is his who is present and his secondary is his daughter who is also present and living will is currently in place. Discussed CODE status at length including difference between FULL code, DNR-CCA and DNR-CC status. Following discussions about the differences in these status, requested DNR-CCA, no intubation, no aggressive interventions. Advanced Care Planning DC home with outpt therapy. Medications at Discharge Home Medications donepezil 10 mg tablet 10 mg PO QHS MEMORY 01/01/18 magnesium oxide 400 mg PO DAILY SUPPLEMENT 03/03/19 sertraline 50 mg tablet 50 mg PO DAILY DEPRESSION 03/03/19 aspirin 81 mg tablet,delayed release (Adult Low Dose Aspirin) 81 mg PO DAILY heart health 07/10/19 atorvastatin 80 mg tablet 80 mg PO QHS CHOLESTEROL 07/10/19 insulin aspart U-100 100 unit/mL (3 mL) subcutaneous pen See Protocol SQ TIDCM DM 11/04/19 insulin glargine 100 unit/mL (3 mL) subcutaneous pen 22 unit SQ DAILY DM 11/04/19 tamsulosin 0.4 mg capsule 0.4 mg PO DAILY PROSTATE 11/04/19 amlodipine 5 mg tablet 10 mg PO DAILY HTN 12/18/19 losartan 100 mg tablet 100 mg PO DAILY heart 12/18/19 amitriptyline 10 mg tablet 20 mg PO QHS nerve pain 01/28/22 docusate sodium 100 mg tablet 100 mg PO DAILY PRN Constipation 01/28/22 dulaglutide 1.5 mg/0.5 mL subcutaneous pen injector (Trulicity) 1.5 mg subcut WE diabetes 01/28/22 Hospital Course Operations None Procedures None Summary of Care Provided Minutes Spent on Discharge: 28 Weight / BMI Weight Weight: 74.1 kg Body Mass Index (BMI) 27.1 ABG / Lab / Microbiology Data Result Diagrams: 01/30/22 05:23 01/30/22 05:23 Laboratory: Laboratory Results - last 24 hr 01/30/22 05:23: WBC 8.7, RBC 3.63 L, Hgb 10.4 L, Hct 32.6 L, MCV 89.8, MCH 28.7, MCHC 31.9 L D, RDW Std Deviation 47.6 H, RDW Coeff of [place] 14.5, Plt Count 224, MPV 11.2, Immature Gran % (Auto) 0.500, Neut % (Auto) 71.5 H, Lymph % (Auto) 17.3 L, [place] % (Auto) 7.8, Eos % (Auto) 2.3, Baso % (Auto) 0.6, Absolute Neuts (auto) 6.2, Absolute Lymphs (auto) 1.50, Nucleated RBC % 0 01/30/22 05:23: Sodium 142, Potassium 3.8, Chloride 114 H, Carbon Dioxide 22.0, Anion Gap 6, BUN 60 H, Creatinine 2.59 H, Estim Creat Clear Calc 18.80, Est GFR (MDRD) Af Amer 31 L, Est GFR (MDRD) Non-Af 25 L, BUN/Creatinine Ratio 23.2 H, Glucose 60 L, Calcium 8.0 L 01/30/22 05:25: Urine Urea Nitrogen 786 01/30/22 05:25: Urine Creatinine 80.20 Radiography Diagnostic Testing: Radiology Impression Renal Ultrasound 01/29/22 08:00 IMPRESSION: No obstructive uropathy, or suspicious solid renal lesion. Renal cortices are echogenic suggesting underlying medical renal disease Nonobstructing left nephrolithiasis Electronically Signed: Moises Schwarz MD at 16:51 EST Reading Location ID and State: [address] [place] [address] , Service support , D/C Instructions Discharge Diet: 2000 Calorie Control Diet Call your doctor if you observe: Shortness of breath, Dizziness and Chest pain Meaningful Use Info Meaningful Use Diagnoses (Choose all that apply): None applicable Discharge Plan Admission Admit Date/Time: 01/28/22 18:18 Primary Reason for Your Visit: acute kidney injury. Attending Provider: Harris Luu Primary Care Provider: Todd Cisse Consulting Providers: Charmaine Araya Discharge Orders/Prescriptions Prescriptions: Continued donepezil 10 mg tablet 10 mg PO QHS magnesium oxide 400 mg magnesium capsule 400 mg PO DAILY sertraline 50 mg tablet 50 mg PO DAILY aspirin [Adult Low Dose Aspirin] 81 mg tablet,delayed release (DR/EC) 81 mg PO DAILY atorvastatin 80 mg tablet 80 mg PO QHS insulin aspart U-100 100 unit/mL (3 mL) insulin pen See Protocol SQ TIDCM Protocol: 6. Sliding Scale Insulin Custom Condition: mg/dl range Dose/Route: Number of Units Protocol Text: Custom Sliding Scale Label Comments: pt is on now on sliding scale with dr. guerin, and does not have it here in the hospital with him. Rx Instructions: pt is on now on sliding scale with dr. guerin, and does not have it here in the hospital with him. insulin glargine 100 UNIT/ML insulin pen 22 unit SQ DAILY tamsulosin 0.4 MG capsule 0.4 mg PO DAILY amlodipine 5 MG tablet 10 mg PO DAILY losartan 100 MG tablet 100 mg PO DAILY Label Comments: TAKE 1 TABLET BY MOUTH EVERY DAY amitriptyline 10 mg tablet 20 mg PO QHS docusate sodium 100 mg Tablet 100 mg PO DAILY PRN (Reason: Constipation) Trulicity 1.5 mg/0.5 mL pen injector 1.5 mg SUBCUT WE Label Comments: INJECT 1.5MG (1 PEN) INTO THE SKIN ONCE A WEEK Discontinued furosemide 80 mg tablet 80 mg PO DAILY Referrals / Follow Up: [facility] [Provider Group] - Within 2 Weeks Todd Cisse MD [Primary Care Provider] - Within 2 Weeks Disposition Disposition (needs filled in before D/C Order can be placed): Home, Self Care Charges/Coding Visit Charges Inpatient E&M: 48047 Disch Hosp
--- NOTE | 2022-01-30 11:18 | CASEMGMT ---
Addendum entered by Mago Hancock 01/30/22 12:00: NIKOS LUIS in to pt room, pt present. She states she would like pt to go to the [facility] for therapy, provided her with rx. She denies further homegoing needs. Original Note: NIKOS LUIS in to pt room to provide pt with a rx for outpt therapy. Pt states he is not sure that he is doing this but that his would know. TC to pt , no answer. Will wait to give to pt when she arrives at hospital.
[2022-01-30 11:22] VITALS: O2SAT 96
--- NOTE | 2022-01-30 11:23 | PHA.DC.MR ---
Pharmacy Service has performed discharge medication reconciliation for this patient. The patient's discharge medication list was reviewed for discrepancies and discrepancies were resolved. Home Medications donepezil 10 mg tablet 10 mg PO QHS MEMORY 01/01/18 magnesium oxide 400 mg PO DAILY SUPPLEMENT 03/03/19 sertraline 50 mg tablet 50 mg PO DAILY DEPRESSION 03/03/19 aspirin 81 mg tablet,delayed release (Adult Low Dose Aspirin) 81 mg PO DAILY heart health 07/10/19 atorvastatin 80 mg tablet 80 mg PO QHS CHOLESTEROL 07/10/19 insulin aspart U-100 100 unit/mL (3 mL) subcutaneous pen See Protocol SQ TIDCM DM 11/04/19 insulin glargine 100 unit/mL (3 mL) subcutaneous pen 22 unit SQ DAILY DM 11/04/19 tamsulosin 0.4 mg capsule 0.4 mg PO DAILY PROSTATE 11/04/19 amlodipine 5 mg tablet 10 mg PO DAILY HTN 12/18/19 losartan 100 mg tablet 100 mg PO DAILY heart 12/18/19 amitriptyline 10 mg tablet 20 mg PO QHS nerve pain 01/28/22 docusate sodium 100 mg tablet 100 mg PO DAILY PRN Constipation 01/28/22 dulaglutide 1.5 mg/0.5 mL subcutaneous pen injector (Trulicity) 1.5 mg subcut WE diabetes 01/28/22
[2022-01-30 11:40] LABS: Bedside Glucose 115 mg/dL (74-106)
[2022-01-30 12:16] VITALS: BP 179/83; PULSE 80; RESP 18; TEMP 36.7; O2SAT 96
== END 2022-01-30 16:09 | disposition home or self-care (01) | DRG 684 ==
LOC: ED 18:38 → MS3 19:39
PROVIDERS: Nurse Practitioner; Admitting Provider Family Medicine; Emergency Provider Student in an Organized Health Care Education/Training Program; PCP Family Medicine
DX: N17.9 Acute kidney failure, unspecified (principal); E11.22 Type 2 diabetes mellitus with diabetic chronic kidney disease; S02.2XXA Fracture of nasal bones, initial encounter for closed fracture; S50.311A Abrasion of right elbow, initial encounter; F03.90 Unspecified dementia, unspecified severity, without behavioral disturbance, psychotic disturbance, mood disturbance, and anxiety; E11.65 Type 2 diabetes mellitus with hyperglycemia; Z79.4 Long term (current) use of insulin; N18.30 Chronic kidney disease, stage 3 unspecified; I12.9 Hypertensive chronic kidney disease with stage 1 through stage 4 chronic kidney disease, or unspecified chronic kidney disease; I25.10 Atherosclerotic heart disease of native coronary artery without angina pectoris; E78.00 Pure hypercholesterolemia, unspecified; F41.9 Anxiety disorder, unspecified; W01.198A Fall on same level from slipping, tripping and stumbling with subsequent striking against other object, initial encounter; N40.0 Benign prostatic hyperplasia without lower urinary tract symptoms; F32.A Depression, unspecified; Z79.82 Long term (current) use of aspirin; Z79.899 Other long term (current) drug therapy; Z95.5 Presence of coronary angioplasty implant and graft; Z66 Do not resuscitate
CPT/HCPCS: 36415; 70450; 70486; 71045; 72125; 76770; 80048; 80053; 81001; 82570; 82962; 84300; 84484; 84540; 85025; 87086; 93005; 97162; 97166; 97530; 99251; 99285; J7030; G0463

== ENCOUNTER 2022-10-26 11:28 | Inpatient (IN) | payer MEDICARE, OTHER, SELFPAY ==
[2022-10-26] VITALS (9 sets, daily range): BP systolic 131–181; BP diastolic 69–90; PULSE 70–90; RESP 18–22; TEMP 36.2–36.6; O2SAT 89–95; BMI 32.1; BMI 35.1
--- NOTE | 2022-10-26 13:20 | RAD_ITS ---
STUDY: X-RAY CHEST REASON FOR EXAM: Male, 82 years old. 4 day history of shortness of breath. TECHNIQUE: Single AP portable view of the chest. COMPARISON: Comparison is made with prior study of January 28, 2022. FINDINGS: Passive congestion and mild CHF with superimposed bibasilar atelectasis more prominent at the left lung base. Blunting of both costophrenic angles. Normal size heart. Normal mediastinum and patricio. Normal visualized pulmonary arteries. There is atherosclerotic calcification of the aortic arch with tortuosity. There are diffuse degenerative changes of the visualized thoracic spine. There is degenerative osteoarthritis of the bilateral shoulders. There is no demonstrated abnormality of the visualized soft tissue structures of the upper abdomen. RAD/Chest 1 View (Portable) IMPRESSION: CHF with bibasilar atelectasis and blunting of both costophrenic angles more prominent on the left side. Electronically Signed: Cesario George MD at 13:45 EDT ,
[2022-10-26 13:30] LABS: Absolute Lymphocyte Count 1.19 X10^3/uL (0.83-4.51); Absolute Neutrophil Count 8.5 X10^3/uL (2.0-7.7); Basophil# 0.04 X10^3/uL; Basophil% 0.4 % (0-1); Eosinophil# 0.22 X10^3/uL; Hematocrit 30.6 % (40-54); Hemoglobin 10.1 g/dL (13.0-16.5); Lymphocyte # 1.19 X10^3/ul (0.83-4.51); Lymphocyte % 10.9 % (19-41); Mean Corpuscular Hgb 28.9 pg (27.0-32.0); Mean Corpuscular Volume 87.7 fL (80-94); Mean Platelet Vol. 10.7 fl (6.2-12.0); Monocyte# 0.92 X10^3/uL; Monocyte% 8.5 % (0-10); NRBC Flagged by Analyzer 0 % (0-5); Neutrophil # 8.45 X10^3/uL (2.7-7.7); Neutrophil % 77.7 % (47-70); Platelet Count 207 K/mm3 (150-450); RBC Distribution Width CV 16.1 % (11.6-14.6); RBC Distribution Width SD 51.8 fl (35.1-43.9); Red Blood Count 3.49 M/mm3 (4.6-6.2); White Blood Count 10.9 K/mm3 (4.4-11.0)
--- NOTE | 2022-10-26 13:51 | ED.RN ---
potassium 7.2.
[2022-10-26 13:52] LABS: Anion Gap 5 (5-15); BUN 51 mg/dL (7-18); Calcium,Total 7.7 mg/dL (8.5-10.1); Chloride 112 mmol/L (98-107); Creatinine, Serum 3.41 mg/dL (0.70-1.30); EST Glomerular Filtration Rate 18 mL/min (>60); Est Glom Filt Rate - Afr Amer 22 mL/min (>60); Estimated Creatinine Clearance 14.03 ml/min; Glucose 130 mg/dL (74-106); Potassium 7.2 mmol/L (3.5-5.1); Sodium Level 137 mmol/L (136-145)
--- NOTE | 2022-10-26 14:04 | EKG12_ITS ---
Test Reason : GENERAL Blood Pressure : / mmHG Vent. Rate : 074 BPM Atrial Rate : 000 BPM P-R Int : 000 ms QRS Dur : 118 ms QT Int : 396 ms P-R-T Axes : 000 -57 -39 degrees QTc Int : 439 ms Atrial fibrillation Left axis deviation Low voltage QRS Incomplete right bundle branch block Septal infarct , age undetermined Inferior infarct , age undetermined Abnormal ECG Confirmed by JASMIN HERNDON MD ([id number]), book editor [facility] SANDERS ([id number]) on 11/30/2022 1:20:00 PM Referred By: Confirmed By:JASMIN HERNDON MD
--- NOTE | 2022-10-26 14:12 | EX.ED.DYSGE1 ---
HPI History of Present Illness Chief Complaint: Shortness of Breath Narrative Narrative: Patient here with spouse and daughter sent in from PCP after lab work reported elevated potassium. They called PCP due to noting swelling of the face. Labs were drawn. They went down to express care for evaluation however there is swelling told go to the ED also. They were contacted potassium was elevated however unknown numbers. He has history of CKD, is followed by [facility] nephrology. Family ports there is no plans for dialysis and this is not an option. Reported he was made DNR CC only in 2019, family has had this discussions including a daughter who is an ICU nurse. There is no residual deficits from his stroke he has history of dementia. History of paroxysmal A-fib. They are followed by PCP Dr. Cisse. Patient denies any symptoms on evaluation. Family does report decreased urine output. [facility] Medical History (Updated 10/26/22 @ 15:[address] Eugene Olsen MD) Albuminuria Anemia Benign prostatic hyperplasia with urinary retention Bilateral carotid artery stenosis Cancer of eye Chronic kidney disease, stage 4 (severe) Constipation Cough due to LATESHA inhibitor CVA (cerebral vascular accident) (04/26/20) Dementia Diverticulosis of colon Hearing problem Hemorrhage of gastrointestinal tract, unspecified Hemorrhoids Hyperkalemia Hyperlipidemia due to type 1 diabetes mellitus Hypertension, essential Hypertensive kidney disease with stage 3b chronic kidney disease Hypocalcemia Hyponatremia Impotence of organic origin Incomplete right bundle branch block (RBBB) Metabolic acidosis Mixed hyperlipidemia Overweight (BMI 25.0-29.9) PAD (peripheral artery disease) Paroxysmal atrial fibrillation Presence of stent in left circumflex coronary artery (2001) Pulmonary hypertension Rectal bleeding Renal artery stenosis Snoring Type 2 diabetes mellitus with diabetic peripheral angiopathy without gangrene, with long-term current use of insulin Home Medications donepezil 10 mg tablet 10 mg PO QHS MEMORY 01/01/18 [History Last Taken 10/25/22] magnesium oxide 400 mg PO DAILY SUPPLEMENT 03/03/19 [History Last Taken 10/26/22] sertraline 50 mg tablet 50 mg PO DAILY DEPRESSION 03/03/19 [History Last Taken 10/26/22] aspirin 81 mg tablet,delayed release (Adult Low Dose Aspirin) 81 mg PO DAILY heart health 07/10/19 [History Last Taken 10/26/22] atorvastatin 80 mg tablet 80 mg PO QHS CHOLESTEROL 07/10/19 [History Last Taken 10/25/22] losartan 100 mg tablet 100 mg PO DAILY heart 12/18/19 [History Last Taken 01/28/22] amitriptyline 10 mg tablet 20 mg PO QHS nerve pain 01/28/22 [History Last Taken 10/25/22] dulaglutide 1.5 mg/0.5 mL subcutaneous pen injector (Trulicity) 1.5 mg subcut WE diabetes 01/28/22 [History Last Taken 10/19/22] amlodipine 5 mg tablet 10 mg PO DAILY HTN 10/24/22 [History Last Taken 10/26/22] docusate sodium 100 mg tablet 100 mg PO BID Constipation 10/24/22 [History Last Taken 10/26/22] insulin glargine 100 unit/mL (3 mL) subcutaneous pen 34 unit subcut DAILY DM 10/24/22 [History Last Taken 10/26/22] sodium bicarbonate 650 mg tablet 650 mg PO DAILY 10/24/22 [History Last Taken 10/26/22] tamsulosin 0.4 mg capsule 0.8 mg PO DAILY PROSTATE 10/24/22 [History Last Taken 10/26/22] Allergy/AdvReac Type Severity Reaction Status Date / Time Penicillins Allergy Anaphylaxis Verified 10/26/22 11:32 lantus Solostar U-1 Allergy Severe Rash Uncoded 10/24/22 09:27 Family History Mother Diabetes Heart disease Hypertension Myocardial infarction Father Diabetes Heart disease Hypertension Emphysema/COPD Surgical History H/O carotid endarterectomy (2001) History of colonoscopy History of kidney surgery History of renal stent (1984) History of stent insertion of renal artery Social History household members: spouse Smoking Status: Never smoker second hand exposure: No substance use type: does not use ROS ROS ED Constitutional Constitutional ED: Denies chills, fever(s) or sweats Eyes Eyes: Denies change in vision ENT ENT ED: Denies dysphagia or sore throat Cardiovascular Cardiovascular: Denies chest pain, leg edema, palpitations or racing heartbeat Respiratory/Chest Respiratory/Chest: Denies cough, dyspnea or dyspnea on exertion Gastrointestinal Gastrointestinal: Denies abdominal pain, diarrhea, nausea or vomiting Genitourinary Genitourinary ED: Reports other Details: Family reports decreased urine output. ; Denies dysuria, hematuria or urinary frequency Musculoskeletal Musculoskeletal: Denies back pain, extremity pain or neck pain Integumentary Denies rash or wounds Neurologic Neurologic: Denies headache(s), paresthesias or weakness EXAM Physical Exam Const Vital Signs: 10/26/22 11:29 10/26/22 13:20 10/26/22 13:23 Temperature 97.8 F Temperature Source Temporal Pulse Rate 88 Respiratory Rate 20 H 20 H Respiratory Effort Respiratory Pattern Blood Pressure 154/73 H Blood Pressure Mean 100 Pulse Ox 95 95 Oxygen Delivery Method Room Air Room Air Room Air 10/26/22 13:24 10/26/22 14:23 10/26/22 14:41 Temperature 97.5 F L Temperature Source Axillary Pulse Rate 70 90 Respiratory Rate 18 22 H Respiratory Effort Short of Breath Respiratory Pattern Tachypnea Normal Blood Pressure 181/90 H Blood Pressure Mean 120 Pulse Ox 95 Oxygen Delivery Method Room Air Room Air Positive well nourished and well developed General Appearance ED: well developed and NAD HEENT Reports moist mucous membranes HEENT Narrative: Slight swelling around face more under right eye. Appears slight fluid collection. Nontender. normocephalic and atraumatic Eyes PERRL, EOMs intact bilaterally and conjunctivae normal General Eye ED: Yes normal appearance of both eyes Neck no lymphadenopathy and supple General: Negative for tenderness Chest Wall Chest: Negative for tenderness Resp normal respiratory effort and normal air movement Effort and Inspection: symmetric chest movement; Negative for respiratory distress Cardio regular rate and no murmurs Rhythm: abnormal rhythm Peripheral Pulses: pulses 2+ throughout GI normal to inspection, nondistended, normoactive bowel sounds and non-tender Palpation: Negative for guarding or rebound tenderness present Back/Spine no CVA tenderness and no thoracic nor lumbar tenderness Extremity normal to inspection Extremity Narrative: Minimal lower extremity edema General Extremety ED: Yes edema; Negative for tenderness General Extremity: edema Neuro no sensory deficits noted Neuro Narrative: Alert to person and place Sensorium / Orientation: awake and alert Skin no rashes or lesions noted and no wounds MDM MDM MDM Narrative Medical decision making narrative: Interventions / MDM: Differential diagnosis: MARLA, electrolyte abnormalities, atrial fibrillation Diagnosis considered but do not suspect: N/A My EKG interpretation: Rate controlled atrial fibrillation rate of 74, no peak T waves, T wave inversions leads III and aVF. Imaging independently reviewed and interpreted by myself: 2 view chest x-ray: Vascular congestion with effusion right lower lobe. External documents reviewed: N/A Test considered but not ordered:N/A ED course: Patient had protocol labs drawn before my evaluation potassium nonhemolyzed returned at 7.2 worsening MARLA with creatinine of 3.4. Previously was 2.5. EKG with a rate controlled A-fib. However potassium greater than 7 he is given calcium, aerosol treatments, insulin and glucose. Glucose returned at 130 in the lab. Due to family not wanting dialysis as an option, Kayexalate also given. We will plan for admission due to his hyperkalemia. I spoke with Dr. Olsen for admission. In the interim, while waiting for bed his sugars did dip down to 48, he is asymptomatic given juice he was in the 50s, he is awake, nursing will give additional D50 before going to the floor. Re-evaluation: stable Disposition discussed with patient/family/significant other: Family Case discussed with consulting clinician: Hospitalist This note was generated with [employer] dictation software. It may contain incorrect words, spelling, and punctuation that were not noted in checking the note before signing. Lab Data Labs: Laboratory Results - last 24 hr 10/26/22 13:17 WBC 10.9 RBC 3.49 L Hgb 10.1 L Hct 30.6 L MCV 87.7 MCH 28.9 MCHC 33.0 RDW Std Deviation 51.8 H RDW Coeff of Courtney 16.1 H Plt Count 207 MPV 10.7 Immature Gran % (Auto) 0.500 Neut % (Auto) 77.7 H Lymph % (Auto) 10.9 L [place] % (Auto) 8.5 Eos % (Auto) 2.0 Baso % (Auto) 0.4 Absolute Neuts (auto) 8.5 H Absolute Lymphs (auto) 1.19 Nucleated RBC % 0 Sodium 137 Potassium 7.2 H* Chloride 112 H Carbon Dioxide 20.0 L Anion Gap 5 BUN 51 H Creatinine 3.41 H Estim Creat Clear Calc 14.03 Est GFR (MDRD) Af Amer 22 L Est GFR (MDRD) Non-Af 18 L BUN/Creatinine Ratio 15.0 Glucose 130 H Calcium 7.7 L Radiography Diagnostic Testing: Clinical Impression(s) from Imaging Studies Chest X-Ray 10/26/22 13:20 IMPRESSION: CHF with bibasilar atelectasis and blunting of both costophrenic angles more prominent on the left side. Electronically Signed: Cesario George MD at 13:45 EDT , Discharge Plan Dx/Rx/DC Orders Clinical Impression: Acute hyperkalemia, Dementia, MARLA (acute kidney injury), Atrial fibrillation, DNR no code (do not resuscitate) Disposition Disposition: Acute Care [facility]
[2022-10-26] MEDS: Albuterol 2.5 MG/3 ML VIAL.NEB. 10 MG INHALATION (14:20)
[2022-10-26] MEDS: Calcium Gluconate IV 3 GM in Syringe 1 EACH IV (14:31)
[2022-10-26] MEDS: Dextrose 50%-Water 25 GM/50 ML DISP.SYRIN IV ×2 (14:31→16:32)
[2022-10-26] MEDS: Insulin Lispro 10 UNIT in Syringe 0 ML 6 UNIT IV (14:32)
[2022-10-26] MEDS: Sodium Polystyrene Sulfonate 15 GM/60 ML UDC PO (14:41)
--- NOTE | 2022-10-26 15:36 | CM.ED ---
Social Work SW Face to Face with patient, patient's and patient's daughter for initial transition planning/care coordination assessment. SW introduced self and role at [facility]. Patient sleeping in hospital bed, patient's and daughter are agreeable to participate in assessment and is able to answer all questions appropriately. Care providers, pharmacy, and demographics verified. wishes for patient to discharge home and voices no needs. SW/CM to follow for further d/c needs as they arise. PCP: [place] Specialists: mortgage loan officer originator with [facility], Postdoctoral Research Associate with [facility] and initial appointment with [facility] credit support specialist scheduled for next Saturday. Preferred Pharmacy: [facility] Insurance: [facility], [employer] Prescription Benefit: yes Living Will/HPOA: yes, Carolyne Mack LNOK: , daughter Living Arrangements: Patient lives with in a single story home with 2 steps and grab bar to enter. Per patient is independent at home but needs reminded to shower. Patient's assists with medications but explained she has always assisted patient with medications. Transportation: , daughter DME/HHC: Patient has shower chair, raised toilet, cane, walker and glucometer at home. Per patient's , no previous HHC or SNF. Patient has participated in outpatient therapy with [facility]. Disposition Plan: home with family support, no needs IVAN Albright
--- NOTE | 2022-10-26 15:38 | PCM.HP.STD ---
[facility] - General General Date of Admission: 10/26/22 HPI Narrative SUSAN LEZAMA, is a 82 M who presents to the hospital for evaluation of abnormal labs. Family called their primary care doctor because they felt that his face was swollen and he ordered some lab work and they went to an urgent care who evaluated him and recommended he come to the ER. The lab work demonstrated an increased creatinine which has become his new baseline at around 3.41. But the more significant issue is his potassium was elevated to 7.2. He denies any chest pain he does have a history of dementia. In the ER EKG did not demonstrate any peaked T waves but he was given Kayexalate as well as calcium and insulin and glucose and an albuterol breathing treatment. [facility] Medical History (Updated 10/26/22 @ 15:[address] Eugene Olsen MD) Albuminuria Anemia Benign prostatic hyperplasia with urinary retention Bilateral carotid artery stenosis Cancer of eye Chronic kidney disease, stage 4 (severe) Constipation Cough due to LATESHA inhibitor CVA (cerebral vascular accident) (04/26/20) Dementia Diverticulosis of colon Hearing problem Hemorrhage of gastrointestinal tract, unspecified Hemorrhoids Hyperkalemia Hyperlipidemia due to type 1 diabetes mellitus Hypertension, essential Hypertensive kidney disease with stage 3b chronic kidney disease Hypocalcemia Hyponatremia Impotence of organic origin Incomplete right bundle branch block (RBBB) Metabolic acidosis Mixed hyperlipidemia Overweight (BMI 25.0-29.9) PAD (peripheral artery disease) Paroxysmal atrial fibrillation Presence of stent in left circumflex coronary artery (2001) Pulmonary hypertension Rectal bleeding Renal artery stenosis Snoring Type 2 diabetes mellitus with diabetic peripheral angiopathy without gangrene, with long-term current use of insulin Home Medications donepezil 10 mg tablet 10 mg PO QHS MEMORY 01/01/18 [History Last Taken 10/25/22] magnesium oxide 400 mg PO DAILY SUPPLEMENT 03/03/19 [History Last Taken 10/26/22] sertraline 50 mg tablet 50 mg PO DAILY DEPRESSION 03/03/19 [History Last Taken 10/26/22] aspirin 81 mg tablet,delayed release (Adult Low Dose Aspirin) 81 mg PO DAILY heart health 07/10/19 [History Last Taken 10/26/22] atorvastatin 80 mg tablet 80 mg PO QHS CHOLESTEROL 07/10/19 [History Last Taken 10/25/22] losartan 100 mg tablet 100 mg PO DAILY heart 12/18/19 [History Last Taken 01/28/22] amitriptyline 10 mg tablet 20 mg PO QHS nerve pain 01/28/22 [History Last Taken 10/25/22] dulaglutide 1.5 mg/0.5 mL subcutaneous pen injector (Trulicity) 1.5 mg subcut WE diabetes 01/28/22 [History Last Taken 10/19/22] amlodipine 5 mg tablet 10 mg PO DAILY HTN 10/24/22 [History Last Taken 10/26/22] docusate sodium 100 mg tablet 100 mg PO BID Constipation 10/24/22 [History Last Taken 10/26/22] insulin glargine 100 unit/mL (3 mL) subcutaneous pen 34 unit subcut DAILY DM 10/24/22 [History Last Taken 10/26/22] sodium bicarbonate 650 mg tablet 650 mg PO DAILY 10/24/22 [History Last Taken 10/26/22] tamsulosin 0.4 mg capsule 0.8 mg PO DAILY PROSTATE 10/24/22 [History Last Taken 10/26/22] Allergy/AdvReac Type Severity Reaction Status Date / Time Penicillins Allergy Anaphylaxis Verified 10/26/22 11:32 lantus Solostar U-1 Allergy Severe Rash Uncoded 10/24/22 09:27 Family History Mother Diabetes Heart disease Hypertension Myocardial infarction Father Diabetes Heart disease Hypertension Emphysema/COPD Surgical History H/O carotid endarterectomy (2001) History of colonoscopy History of kidney surgery History of renal stent (1984) History of stent insertion of renal artery Social History household members: spouse Smoking Status: Never smoker second hand exposure: No substance use type: does not use ROS Constitutional Constitutional: Reports other Details: Swollen face ; Denies chills, fatigue, fever(s) or malaise Eyes Eyes: Denies blurry vision ENT HEENT: Denies headache(s) or nasal discharge Cardiovascular Cardiovascular: Denies chest pain, dyspnea on exertion or syncope Respiratory/Chest Respiratory/Chest: Reports wheezing; Denies cough, shortness of breath at rest or shortness of breath with exertion Gastrointestinal Gastrointestinal: Denies constipation, diarrhea, nausea or vomiting Genitourinary Genitourinary: Denies dysuria Neurologic Neurologic: Denies focal weakness, numbness or tremor(s) Psychiatric Psychiatric: Denies anxiety or depression Vital Signs Vital Signs Vital Signs: 10/26/22 11:29 10/26/22 13:20 10/26/22 13:23 Temperature 97.8 F Temperature Source Temporal Pulse Rate 88 Respiratory Rate 20 H 20 H Respiratory Effort Respiratory Pattern Blood Pressure 154/73 H Blood Pressure Mean 100 Pulse Ox 95 95 Oxygen Delivery Method Room Air Room Air Room Air 10/26/22 13:24 10/26/22 14:23 10/26/22 14:41 Temperature 97.5 F L Temperature Source Axillary Pulse Rate 70 90 Respiratory Rate 18 22 H Respiratory Effort Short of Breath Respiratory Pattern Tachypnea Normal Blood Pressure 181/90 H Blood Pressure Mean 120 Pulse Ox 95 Oxygen Delivery Method Room Air Room Air Weight Weight: 193 lb Body Mass Index (BMI) 32.1 Physical Exam Narrative General: Alert, Oriented x 2, Cooperative, No apparent distress HEENT: Atraumatic, PERRLA, EOMI, Normocephalic Oral: Moist Mucosa Neck: Supple, No JVD Lungs: Diminished, Normal air movement, No rhonchi, wheeze, No rales Cardiovascular: Regular rate, Regular Rhythm, Normal S1, Normal S2, No murmurs Abdomen: Soft, Non Tender, Non-Distended, No Hepato-splenomegaly Extremities: Edema, Capillary Refill Less than 3 Seconds Skin: No rashes, No breakdown Musculoskeletal: No Tenderness to Palpation of Joints or Extremities Neurological: Motor Exam 5/5 strength throughout, Sensory exam intact to light touch and pain Psych/Mental Status: Normal Affect, Appropriate Results Lab / Micro Data 10/26/22 13:17 10/26/22 13:17 Labs: Laboratory Results - last 24 hr 10/26/22 13:17: WBC 10.9, RBC 3.49 L, Hgb 10.1 L, Hct 30.6 L, MCV 87.7, MCH 28.9, MCHC 33.0, RDW Std Deviation 51.8 H, RDW Coeff of Courtney 16.1 H, Plt Count 207, MPV 10.7, Immature Gran % (Auto) 0.500, Neut % (Auto) 77.7 H, Lymph % (Auto) 10.9 L, [place] % (Auto) 8.5, Eos % (Auto) 2.0, Baso % (Auto) 0.4, Absolute Neuts (auto) 8.5 H, Absolute Lymphs (auto) 1.19, Nucleated RBC % 0, Sodium 137, Potassium 7.2 H*, Chloride 112 H, Carbon Dioxide 20.0 L, Anion Gap 5, BUN 51 H, Creatinine 3.41 H, Estim Creat Clear Calc 14.03, Est GFR (MDRD) Af Amer 22 L, Est GFR (MDRD) Non-Af 18 L, BUN/Creatinine Ratio 15.0, Glucose 130 H, Calcium 7.7 L Radiology Impression Chest X-Ray 10/26/22 13:20 IMPRESSION: CHF with bibasilar atelectasis and blunting of both costophrenic angles more prominent on the left side. Electronically Signed: Cesario George MD at 13:45 EDT , Assessment & Plan Assessment/Plan (1) Hypertensive kidney disease with stage 3b chronic kidney disease: (2) Acute hyperkalemia: PLAN: Plan 1. Acute hyperkalemia in the setting of chronic kidney disease stage IIIb ? He did receive appropriate treatment in the ER for a potassium of 7.2 ? We will repeat BMP this evening and if still elevated will proceed with further treatments ? Had a treatment discussion with family on advance care planning specifically the utility of dialysis and the fact that he is a DNR and they would not want dialysis. They would like to meet with palliative care 2. HTN/HLD/A-fib ? Can blood pressure medic patient, will hold his losartan secondary to his renal failure ? He has been taken off a lot of his medication secondary to his DNR status and family would just like him to be as comfortable as possible, he is not on at the anticoagulation I do not believe that he is currently a candidate for it ? Continue with his cholesterol medication 3. DM 2 ? Will place him on cardiac diet and continue with his long-acting insulin ? Accu-Cheks ACHS ? Sliding scale insulin ? Make adjustments as necessary 4. Anxiety/depression/dementia ? Stable ? Continue with Zoloft and donepezil 5. BPH ? Stable ? Continue with Flomax DVT: Heparin 76 minutes was spent on direct patient care, including documentation as well as chart review and collaboration with colleagues Charges/Coding Visit Charges Inpatient E&M: 87454 Init Hosp L3 Procedures Hospitalists Procedures: 43572 Advncd Care Plan 30 Min
--- NOTE | 2022-10-26 15:45 | CM.ED ---
Social Work SW met with patient's and daughter as patient is currently asleep and struggles with memory. Per patient's , LW and HCPOA documents are completed and name patient's as HCPOA and alternate is patient's daughter. SW informed patient's family AD documents are not on chart and encouraged them to bring a copy to be added, patient's family voiced understanding. [place] Suero PONY RIDE ATTENDANT, IVAN
--- NOTE | 2022-10-26 16:02 | ED.RN ---
FAMILY REPORTS PT BS MONITOR ALARMING BS=58. RECHECK W/HOSP ACCUCHECK=43. DR VALENCIA NOTIFIED. OJ AND MILK PROVIDED TO PT. WILL MONITOR.
[2022-10-26 16:18] LABS: Bedside Glucose 43 mg/dL (74-106)
--- NOTE | 2022-10-26 16:36 | ED.RN ---
BS RECHECK=56. ANOTHER OJ GIVEN. DR VALENCIA NOTIFIED, NEW ORDER PLACED FOR D50%. WILL NOTIFY PCU TO MONITOR
[2022-10-26 16:45] LABS: Bedside Glucose 56 mg/dL (74-106)
[2022-10-26 17:45] LABS: Bedside Glucose 148 mg/dL (74-106)
[2022-10-26 20:34] LABS: Anion Gap 9 (5-15); BUN 52 mg/dL (7-18); BUN/Creat Ratio 14.6 RATIO (10-20); Calcium,Total 8.5 mg/dL (8.5-10.1); Chloride 108 mmol/L (98-107); Creatinine, Serum 3.56 mg/dL (0.70-1.30); EST Glomerular Filtration Rate 18 mL/min (>60); Est Glom Filt Rate - Afr Amer 21 mL/min (>60); Estimated Creatinine Clearance 11.93 ml/min; Glucose 183 mg/dL (74-106); Potassium 5.6 mmol/L (3.5-5.1); Sodium Level 139 mmol/L (136-145)
[2022-10-26 22:04] LABS: Bedside Glucose 212 mg/dL (74-106)
[2022-10-26] MEDS: Amitriptyline 10 MG Tablet 20 MG PO (22:50)
[2022-10-26] MEDS: Heparin Injection (Vial) 5,000 UNIT/ML VIAL 5000 UNIT SC (22:50)
[2022-10-26] MEDS: Atorvastatin Calcium 80 MG Tablet PO (22:51)
[2022-10-26] MEDS: Donepezil HCl 10 MG Tablet PO (22:52)
[2022-10-27 05:00] VITALS: BP 130/71; PULSE 81; RESP 20; TEMP 36.7; O2SAT 95
--- NOTE | 2022-10-27 08:08 | PN.HOSP_ITS ---
Reason for Visit Reason for Visit: Diagnoses Hyperkalemia (10/26/22) Hypertensive chronic kidney disease with stage 1 through stage 4 chronic kidney disease, or unspecified chronic kidney disease (10/26/22) Chronic kidney disease, stage 3b (10/26/22) Subjective Subjective Anxious to go home. Objective Data Objective Data Vital Signs: Vital Signs Temp Pulse Resp BP Pulse Ox O2 Del Method O2 Flow Rate 36.7 C 81 20 H 130/71 H 95 Nasal Cannula 2 10/27/22 05:00 10/27/22 05:00 10/27/22 05:00 10/27/22 05:00 10/27/22 05:00 10/27/22 07:50 10/27/22 07:50 Oxygen Flow Rate (L/min) 2 Oxygen Delivery Method Nasal Cannula Weight: 87.1 kg Body Mass Index (BMI) 35.1 Intake & Output: Intake and Output for Last 24 Hours 10/25/22 10/26/22 10/27/22 23:59 23:59 23:59 Intake Total 30 / 230 350 / 350 Balance 30 / 230 350 / 350 Lab / Micro Data 10/27/22 08:03 10/27/22 08:03 Labs: Laboratory Results - last 24 hr 10/26/22 13:17: WBC 10.9, RBC 3.49 L, Hgb 10.1 L, Hct 30.6 L, MCV 87.7, MCH 28.9, MCHC 33.0, RDW Std Deviation 51.8 H, RDW Coeff of Courtney 16.1 H, Plt Count 207, MPV 10.7, Immature Gran % (Auto) 0.500, Neut % (Auto) 77.7 H, Lymph % (Auto) 10.9 L, [place] % (Auto) 8.5, Eos % (Auto) 2.0, Baso % (Auto) 0.4, Absolute Neuts (auto) 8.5 H, Absolute Lymphs (auto) 1.19, Nucleated RBC % 0, Sodium 137, Potassium 7.2 H*, Chloride 112 H, Carbon Dioxide 20.0 L, Anion Gap 5, BUN 51 H, Creatinine 3.41 H, Estim Creat Clear Calc 14.03, Est GFR (MDRD) Af Amer 22 L, Est GFR (MDRD) Non-Af 18 L, BUN/Creatinine Ratio 15.0, Glucose 130 H, Calcium 7.7 L 10/26/22 15:55: POC Glucose 43 L* 10/26/22 16:24: POC Glucose 56 L 10/26/22 17:04: POC Glucose 148 H 10/26/22 19:52: Sodium 139, Potassium 5.6 H, Chloride 108 H, Carbon Dioxide 22.0, Anion Gap 9, BUN 52 H, Creatinine 3.56 H, Estim Creat Clear Calc 11.93, Est GFR (MDRD) Af Amer 21 L, Est GFR (MDRD) Non-Af 18 L, BUN/Creatinine Ratio 14.6, Glucose 183 H, Calcium 8.5 10/26/22 21:19: POC Glucose 212 H Radiography Diagnostic Testing: Radiology Impression Chest X-Ray 10/26/22 13:20 IMPRESSION: CHF with bibasilar atelectasis and blunting of both costophrenic angles more prominent on the left side. Electronically Signed: Cesario George MD at 13:45 EDT , Physical Exam Const alert and no apparent distress Constitutional Narrative: hard of hearing. HEENT head/scalp atraumatic and moist oral mucous membranes Psych affect normal Assessment & Plan Assessment/Plan (1) Acute hyperkalemia: PLAN: Resolved Acute hyperkalemia in the setting of chronic kidney disease stage IIIb in patient that takes losartan. Admission K was 7.2, now 5 Patient received Ca gluconate, insulin and D50, albuterol and Kayexalate in ED Subsequent creatinine 5.6. Family did not want dialysis. Hold losartan (2) Type 2 diabetes mellitus with diabetic neuropathy, with long-term current use of insulin: PLAN: Takes glargine 34 units/daily Had hypoglycemia yesterday down to 43. Cut glargine down to 18 units/daily Continue SSI. PLAN: Plan Chronic stable conditions: * afib: rate-controlled. Not currently on anticoagulation * HTN: stable. continue amlodipine. No further losaratan given CKD and hyperkalemia. Add hydralazine. * HLP: continue atorvastatin * Dementia: continue donezapil * Depression/anxiety: sertraline. * BPH: tamsulosin. DVT prophylaxis: SQ Heparin DC home. Charges/Coding Visit Charges Inpatient E&M: 35885 Subs Hosp L2
[2022-10-27 09:01] LABS: Absolute Lymphocyte Count 1.52 X10^3/uL (0.83-4.51); Absolute Neutrophil Count 6.3 X10^3/uL (2.0-7.7); Basophil# 0.06 X10^3/uL; Basophil% 0.7 % (0-1); Eosinophil# 0.27 X10^3/uL; Hematocrit 30.3 % (40-54); Hemoglobin 9.9 g/dL (13.0-16.5); Lymphocyte # 1.52 X10^3/ul (0.83-4.51); Mean Corp Hgb Conc 32.7 g/dL (32-36); Mean Corpuscular Volume 88.9 fL (80-94); Monocyte# 0.83 X10^3/uL; Monocyte% 9.3 % (0-10); NRBC Flagged by Analyzer 0 % (0-5); Neutrophil # 6.26 X10^3/uL (2.7-7.7); Neutrophil % 69.8 % (47-70); Platelet Count 178 K/mm3 (150-450); RBC Distribution Width SD 52.2 fl (35.1-43.9); Red Blood Count 3.41 M/mm3 (4.6-6.2)
[2022-10-27] MEDS: Sertraline 50 MG Tablet PO (09:01)
[2022-10-27] MEDS: Aspirin E.C. 81 MG Tablet PO (09:01)
[2022-10-27] MEDS: amLODIPine 10 MG Tablet PO (09:01)
[2022-10-27] MEDS: Tamsulosin HCl 0.4 MG Capsule 0.8 MG PO (09:01)
[2022-10-27] MEDS: Heparin Injection (Vial) 5,000 UNIT/ML VIAL 5000 UNIT SC (09:02)
[2022-10-27] MEDS: Sodium Bicarbonate 650 MG Tablet PO (09:02)
[2022-10-27 09:13] VITALS: BP 161/100; PULSE 101; RESP 20; TEMP 36.5; O2SAT 96
[2022-10-27 09:16] LABS: Anion Gap 10 (5-15); BUN 46 mg/dL (7-18); BUN/Creat Ratio 13.8 RATIO (10-20); Calcium,Total 8.3 mg/dL (8.5-10.1); Chloride 108 mmol/L (98-107); Creatinine, Serum 3.33 mg/dL (0.70-1.30); EST Glomerular Filtration Rate 19 mL/min (>60); Est Glom Filt Rate - Afr Amer 23 mL/min (>60); Estimated Creatinine Clearance 12.75 ml/min; Glucose 57 mg/dL (74-106); Sodium Level 142 mmol/L (136-145)
[2022-10-27 09:22] LABS: Bedside Glucose 57 mg/dL (74-106)
[2022-10-27 10:02] LABS: Bedside Glucose 150 mg/dL (74-106)
[2022-10-27] MEDS: Insulin Glargine-YFGN 100 UNIT/ML Pen 18 UNIT SC (12:16)
--- NOTE | 2022-10-27 12:30 | DS.PCM_ITS ---
Providers Date of Admission: 10/26/22 Primary Care Physician: Dr. Todd Cisse MD Consultations 10/26/22 15:59 Consult: Hospice / Palliative Care Routine Consulting Provider: [facility] Reason for Consult: palliative EMERGENT Consult: No MD Notified: Yes Date Notified: 10/26/22 Time Notified: 15:59 Method of Notification: per casemanagement Reason For Visit: HYPERKALEMIA, MARLA Diagnosis Discharge Diagnosis (1) Acute hyperkalemia: Status: Acute Code(s): E87.5 - Hyperkalemia Plan: Resolved Acute hyperkalemia in the setting of chronic kidney disease stage IIIb in patient that takes losartan. Admission K was 7.2, now 5 Patient received Ca gluconate, insulin and D50, albuterol and Kayexalate in ED Subsequent creatinine 5.6. Family did not want dialysis. Hold losartan (2) Type 2 diabetes mellitus with diabetic neuropathy, with long-term current use of insulin: Status: Acute Code(s): E11.40 - Type 2 diabetes mellitus with diabetic neuropathy, unspecified; Z79.4 - [facility] (current) use of insulin Plan: Takes glargine 34 units/daily Had hypoglycemia yesterday down to 43. Cut glargine down to 18 units/daily Continue SSI. Plan Chronic stable conditions: * afib: rate-controlled. Not currently on anticoagulation * HTN: stable. continue amlodipine. No further losaratan given CKD and hyperkalemia. Add hydralazine. * HLP: continue atorvastatin * Dementia: continue donezapil * Depression/anxiety: sertraline. * BPH: tamsulosin. DVT prophylaxis: SQ Heparin DC home. Medications at Discharge Home Medications donepezil 10 mg tablet 10 mg PO QHS MEMORY 01/01/18 magnesium oxide 400 mg PO DAILY SUPPLEMENT 03/03/19 sertraline 50 mg tablet 50 mg PO DAILY DEPRESSION 03/03/19 aspirin 81 mg tablet,delayed release (Adult Low Dose Aspirin) 81 mg PO DAILY heart health 07/10/19 atorvastatin 80 mg tablet 80 mg PO QHS CHOLESTEROL 07/10/19 amitriptyline 10 mg tablet 20 mg PO QHS nerve pain 01/28/22 dulaglutide 1.5 mg/0.5 mL subcutaneous pen injector (Trulicity) 1.5 mg subcut WE diabetes 01/28/22 amlodipine 5 mg tablet 10 mg PO DAILY HTN 10/24/22 docusate sodium 100 mg tablet 100 mg PO BID Constipation 10/24/22 sodium bicarbonate 650 mg tablet 650 mg PO DAILY 10/24/22 tamsulosin 0.4 mg capsule 0.8 mg PO DAILY PROSTATE 10/24/22 hydralazine 25 mg tablet 25 mg PO TID #90 tabs 10/27/22 insulin glargine 100 unit/mL (3 mL) subcutaneous pen 18 unit (0.18 mL) subcut DAILY DM #15 mL 10/27/22 Hospital Course Operations None Procedures None Summary of Care Provided Minutes Spent on Discharge: 32 Hospital Course: Patient presents with abnormal labs with a potassium of 7. Patient had no EKG changes but did receive battery medications to correct which did. Subsequent potassium is 5. This is likely due to losartan and patient with chronic kidney disease. Losartan be discontinued. Patient does still have high blood pressure and is maxed out on amlodipine. We will add hydralazine to help with blood pressure management. Patient will be discharged home. Overall, patient improved much faster than initially dissipated upon admission and is stable for discharge after just 1 night. Additionally, patient's blood sugar was low when he was here. His insulin glargine has been decreased from 34-18. Insulin to be further followed up as outpatient. Weight / BMI Weight Weight: 87.1 kg Body Mass Index (BMI) 35.1 ABG / Lab / Microbiology Data 10/27/22 08:03 10/27/22 08:03 Laboratory: Laboratory Results - last 24 hr 10/26/22 13:17: WBC 10.9, RBC 3.49 L, Hgb 10.1 L, Hct 30.6 L, MCV 87.7, MCH 28.9, MCHC 33.0, RDW Std Deviation 51.8 H, RDW Coeff of Courtney 16.1 H, Plt Count 207, MPV 10.7, Immature Gran % (Auto) 0.500, Neut % (Auto) 77.7 H, Lymph % (Auto) 10.9 L, [place] % (Auto) 8.5, Eos % (Auto) 2.0, Baso % (Auto) 0.4, Absolute Neuts (auto) 8.5 H, Absolute Lymphs (auto) 1.19, Nucleated RBC % 0, Sodium 137, Potassium 7.2 H*, Chloride 112 H, Carbon Dioxide 20.0 L, Anion Gap 5, BUN 51 H, Creatinine 3.41 H, Estim Creat Clear Calc 14.03, Est GFR (MDRD) Af Amer 22 L, Est GFR (MDRD) Non-Af 18 L, BUN/Creatinine Ratio 15.0, Glucose 130 H, Calcium 7.7 L 10/26/22 15:55: POC Glucose 43 L* 10/26/22 16:24: POC Glucose 56 L 10/26/22 17:04: POC Glucose 148 H 10/26/22 19:52: Sodium 139, Potassium 5.6 H, Chloride 108 H, Carbon Dioxide 22 .0, Anion Gap 9, BUN 52 H, Creatinine 3.56 H, Estim Creat Clear Calc 11.93, Est GFR (MDRD) Af Amer 21 L, Est GFR (MDRD) Non-Af 18 L, BUN/Creatinine Ratio 14.6, Glucose 183 H, Calcium 8.5 10/26/22 21:19: POC Glucose 212 H 10/27/22 08:03: WBC 9.0, RBC 3.41 L, Hgb 9.9 L, Hct 30.3 L, MCV 88.9, MCH 29.0, MCHC 32.7, RDW Std Deviation 52.2 H, RDW Coeff of Courtney 16.0 H, Plt Count 178, MPV 11.0, Immature Gran % (Auto) 0.200, Neut % (Auto) 69.8, Lymph % (Auto) 17.0 L, [place] % (Auto) 9.3, Eos % (Auto) 3.0, Baso % (Auto) 0.7, Absolute Neuts (auto) 6.3, Absolute Lymphs (auto) 1.52, Nucleated RBC % 0, Sodium 142, Potassium 5.0, Chloride 108 H, Carbon Dioxide 24.0, Anion Gap 10, BUN 46 H, Creatinine 3.33 H, Estim Creat Clear Calc 12.75, Est GFR (MDRD) Af Amer 23 L, Est GFR (MDRD) Non-Af 19 L, BUN/Creatinine Ratio 13.8, Glucose 57 L, Calcium 8.3 L 10/27/22 08:53: POC Glucose 57 L 10/27/22 09:44: POC Glucose 150 H Radiography Diagnostic Testing: Radiology Impression Chest X-Ray 10/26/22 13:20 IMPRESSION: CHF with bibasilar atelectasis and blunting of both costophrenic angles more prominent on the left side. Electronically Signed: Cesario George MD at 13:45 EDT , D/C Instructions Discharge Diet: Low fat / Low cholesterol Meaningful Use Info Meaningful Use Diagnoses (Choose all that apply): None applicable Discharge Plan Admission Admit Date/Time: 10/26/22 15:34 Primary Reason for Your Visit: hyperkalemia Attending Provider: Harris Luu Primary Care Provider: Todd Cisse Consulting Providers: Eugene Olsen; Heladio Barajas; Pearl Roca; Savannah Fowler; Sandra Hernandez DISABILITY SERVICES COORDINATOR Instructions Additional Instructions / Restrictions: Your potassium level was very high at admission. This is likely due to the losartan which we will need to stop. To help with your blood pressure, I have added hydralazine which needs to be taken 3 times a day. Please follow-up your primary care doctor to see if that dosing needs to be adjusted. Your blood sugar was low when you came in here, I have decreased your dose of insulin glargine (long-acting insulin) from 34-18. Discharge Orders/Prescriptions Prescriptions: New hydralazine 25 mg tablet 25 mg PO TID Qty: 90 0RF Continued donepezil 10 mg tablet 10 mg PO QHS magnesium oxide 400 mg magnesium capsule 400 mg PO DAILY sertraline 50 mg tablet 50 mg PO DAILY aspirin [Adult Low Dose Aspirin] 81 mg tablet,delayed release (DR/EC) 81 mg PO DAILY atorvastatin 80 mg tablet 80 mg PO QHS sodium bicarbonate 650 mg tablet 650 mg PO DAILY tamsulosin 0.4 mg capsule 0.8 mg PO DAILY amlodipine 5 mg tablet 10 mg PO DAILY amitriptyline 10 mg tablet 20 mg PO QHS Trulicity 1.5 mg/0.5 mL pen injector 1.5 mg SUBCUT WE Patient Comments: INJECT 1.5MG (1 PEN) INTO THE SKIN ONCE A WEEK docusate sodium 100 mg tablet 100 mg PO BID Changed insulin glargine 100 unit/mL (3 mL) insulin pen 18 unit subcut DAILY Qty: 15 0RF Discontinued losartan 100 MG tablet 100 mg PO DAILY Hold Instructions: MD Ordered Patient Comments: TAKE 1 TABLET BY MOUTH EVERY DAY Referrals / Follow Up: Todd Cisse MD [Primary Care Provider] - Within 2 Weeks Disposition Disposition (needs filled in before D/C Order can be placed): Home, Self Care Charges/Coding Visit Charges Inpatient E&M: 17693 Disch Hosp >30min
[2022-10-27 12:39] LABS: Bedside Glucose 159 mg/dL (74-106)
--- NOTE | 2022-10-27 13:49 | CASEMGMT ---
NIKOS LUIS notified of palliative order placed by hospitalist. Palliative screening tool completed and sent to [facility]. NIKOS LUIS in to patient's room to update that Palliative referral was placed and that [facility] will be reaching out to schedule appt. Patient and family had no further questions or concerns.
[2022-10-30 16:31] LABS: BNP,B-Type NATRIURETIC PEPTIDE 797.6 pg/mL (0-100)
== END 2022-10-27 14:09 | disposition home or self-care (01) | DRG 641 ==
LOC: ED 14:43 → PCU 15:20
PROVIDERS: Admitting Provider Family Medicine; Emergency Provider Emergency Medicine; PCP Family Medicine
DX: E87.5 Hyperkalemia (principal); I13.0 Hypertensive heart and chronic kidney disease with heart failure and stage 1 through stage 4 chronic kidney disease, or unspecified chronic kidney disease; E10.40 Type 1 diabetes mellitus with diabetic neuropathy, unspecified; E10.649 Type 1 diabetes mellitus with hypoglycemia without coma; N18.32 Chronic kidney disease, stage 3b; F03.90 Unspecified dementia, unspecified severity, without behavioral disturbance, psychotic disturbance, mood disturbance, and anxiety; I48.91 Unspecified atrial fibrillation; E10.22 Type 1 diabetes mellitus with diabetic chronic kidney disease; Z79.4 Long term (current) use of insulin; F32.A Depression, unspecified; I25.10 Atherosclerotic heart disease of native coronary artery without angina pectoris; E78.2 Mixed hyperlipidemia; E78.5 Hyperlipidemia, unspecified; Z66 Do not resuscitate; N40.0 Benign prostatic hyperplasia without lower urinary tract symptoms; Z79.82 Long term (current) use of aspirin; Z95.5 Presence of coronary angioplasty implant and graft
CPT/HCPCS: 36415; 71045; 80048; 82962; 83880; 85025; 93005; 94640; 94760; 97802; 99283; J0612